=== PATIENT | male | born 1945 | race Caucasian/White ===

== ENCOUNTER 2023-06-28 12:13 | Emergency (ER) | payer OTHER, SELFPAY ==
[2023-06-28 12:15] VITALS: BP 133/86
[2023-06-28 13:46] LABS: % Basophils 0.5 % (0-2); % Eosinophils 1.4 % (0-6); % Immature Granulocytes 0.2 % (0-0.5); % Lymphocytes 9.7 % (20.5-51.1); % Monocytes 7.3 % (1.7-9.3); % Neutrophils 80.9 % (42.2-75.2); Absolute Eosinophils 0.1 10^3/uL (0-0.7); Absolute Lymphocytes 0.6 10^3/uL (1.2-3.4); Absolute Monocytes 0.5 10^3/uL (0.1-0.6); Absolute Neutrophils 5.2 10^3/uL (1.4-6.5); Hematocrit 31.4 % (39.0-52.0); Hemoglobin 10.5 g/dL (13.0-18.0); Mean Corp Hgb Conc. 33.4 g/dL (33.0-37.0); Mean Corpuscular Hgb 31.1 pg (27.0-31.0); Mean Corpuscular Volume 92.9 fL (80.0-94.0); Mean Platelet Volume 11.3 fL (7.4-10.4); Nucleated Red Blood Cells % 0 % (-); Platelet Count 222 10^3/uL (130-400); Red Blood Cell Count 3.38 10^6/uL (4.70-6.10); Red Cell Dist. Width 13.1 % (11.5-14.5); White Blood Cell Count 6.4 10^3/uL (4.8-10.8)
[2023-06-28 14:01] LABS: ALT (SGPT) 12 U/L (0-50); AST (SGOT) 19 U/L (17-59); Albumin 4.2 g/dl (3.5-5.0); Alkaline Phosphatase 58 U/L (38-126); Blood Urea Nitrogen 59 mg/dl (9-20); Calcium 7.8 mg/dl (8.4-10.2); Carbon Dioxide 19 mmol/L (22-30); Chloride 109 mmol/L (98-107); Glucose 99 mg/dl (70-99); Sodium 135 mmol/L (135-145); Total Bilirubin 0.7 mg/dl (0.2-1.3); Total Protein 6.4 g/dl (6.3-8.2); eGFR 10.79
--- NOTE | 2023-06-28 14:30 | ED.GENMED ---
History of Present Illness
General
Chief Complaint: Headache
Source: patient and spouse
Exam Limitations: none
Time Seen by Provider: 06/28/23 13:10
Nursing documentation reviewed up to this point in time: agreed with
Travel History
Have you had any contact with someone who has COVID-19?: No
Do you have any symptoms of coronavirus? Fever > 100 degrees, chills, cough, shortness of breath, sore throat, loss of taste or smell, muscle aches, or headache?: No
History of Present Illness
History of Present Illness:
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
last night. Denies blurred vision. Denies dizziness. Denies loss of sensation or weakness. Denies trauma. Denies neck pain. Denies chest pain. Denies coughing. Denies recent illness. Denies recent change in medications or diet. Per spouse,
patient appears to be more confused. Of note, patient with chronic renal insufficiency, and is scheduled to start dialysis in the near future. However, patient still does make urine and has had history of UTI.
Review of Systems
Review of Systems
Allergies reviewed?: Yes
All Other Systems: ROS reviewed and negative except as documented in HPI and ROS
Constitutional: Reports no symptoms
EENT: Reports no symptoms
Respiratory: Reports no symptoms
Cardiac: Reports no symptoms
ABD/GI: Reports no symptoms
: Reports no symptoms
Musculoskeletal: Reports no symptoms
Skin: Reports no symptoms
Neurological: Reports headache and other (mental status change)
Phy Exam
Physical Exam
Physical Exam:
Physical Exam
General: no apparent distress, not acutely ill. afebrile
Head: nc/at. eomi
Neck: supple. no meningeal signs.
Heart: s1/s2 regular rate and rhythm, no murmur. equal radial pulses.
Lungs: no acute respiratory distress. clear bilaterally
Abdomen: normal bowel sounds. not tender.
Neuro: alert and oriented. no focal neurological deficits. normal speech.
Skin: no rash
Psychiatric: well kept. interactive and cooperative
Extremities: no edema. no calf tenderness.
Course
Orders/Labs/Results
Orders:
Orders
06/28/23 13:27
Complete Blood Count/With Diff Urgent
06/28/23 13:28
Comprehensive Metabolic Panel Urgent
06/28/23 13:48
0.9% Sodium Chloride 250 ml [Nss] 250 ml IV BOLUS
06/28/23 14:33
Urinalysis Reflex To Culture Urgent
Date Specimen was Collected: 06/28/23
Time Specimen was Collected: 14:30
Urine Microscopic Reflex Cult Urgent
Urine Culture Urgent
HIEU Source: U
Specimen Description:
Date Specimen was Collected: 06/28/23
Time Specimen was Collected: 14:30
06/28/23 14:56
Add On - Microbiology Urgent
Tests Added?: urine culture
Abnormal Lab Results
06/28/23 06/28/23 06/28/23
13:27 13:28 14:33
RBC 3.38 L 10^6/uL
(4.70-6.10)
Hgb 10.5 L g/dL
(13.0-18.0)
Hct 31.4 L %
(39.0-52.0)
MCH 31.1 H pg
(27.0-31.0)
MPV 11.3 H fL
(7.4-10.4)
Absolute Lymphs (auto) 0.6 L 10^3/uL
(1.2-3.4)
Neutrophils % 80.9 H %
(42.2-75.2)
Lymphocytes % 9.7 L %
(20.5-51.1)
Chloride 109 H mmol/L
(98-107)
Carbon Dioxide 19 L mmol/L
(22-30)
BUN 59 H mg/dl
(9-20)
Creatinine 5.2 H* mg/dL
(0.7-1.3)
Calcium 7.8 L mg/dl
(8.4-10.2)
Ur Occult Blood Reflex Trace A
(Negative)
Urine Bacteria (Reflex) Few A
(Negative)
Urine Glucose Trace A
(Negative)
06/28/23 13:27
06/28/23 13:28
Vital Signs
Initial and Last Documented VS:
Initial Vital Signs
Temp Pulse Resp BP Pulse Ox
98.4 F 71 16 133/86 98
06/28/23 12:15 06/28/23 12:15 06/28/23 12:15 06/28/23 12:15 06/28/23 12:15
Last Documented Vital Signs
Temp Pulse Resp BP Pulse Ox
98.4 F 71 16 133/86 98
06/28/23 12:15 06/28/23 12:15 06/28/23 12:15 06/28/23 12:15 06/28/23 12:15
MDM/Problems Addressed
MDM/Problems Addressed:
Patient with an unremarkable workup in ED, including blood work and urinalysis. Patient without any focal neurological deficit and remains hemodynamically stable. Patient and spouse feel comfortable going home at this time. In light of patient's
underlying memory loss/dementia, mental status change may potentially be secondary to progressive symptoms versus other etiology. Patient will be referred to neurology for an outpatient consultation.
*Critical Care Note
Total Time (30-74mins, 75-104mins- exclusive of procedures): Not Applicable
ED Attending Note
-
Portions of this chart may have been created with voice recognition software.� Occasional wrong word or��sound alike� substitutions may have occurred due to the inherent limitations of voice recognition software.
Discharge Plan
Departure
Patient Disposition: Home (Routine Discharge)
Date of Disposition: 06/28/23
Time of Disposition: 14:58
Patient with high blood pressure during this ER visit?: Yes
Discharge Problem:
Altered mental status
Instructions: Altered Mental Status (DC)
Prescriptions:
No Action
citalopram 40 mg Tablet
40 mg PO DAILY
amlodipine 5 mg Tablet
5 mg PO QPM
metoprolol succinate 25 mg Tablet Extended Release 24 Hr
25 mg PO DAILY
magnesium 200 mg Tablet
400 mg PO DAILY
cholecalciferol (vitamin D3) [Vitamin D3] 50 mcg (2,000 unit) Tablet
50 mcg PO DAILY
sodium bicarbonate 650 mg Tablet
650 mg PO BID
calcitriol 0.25 mcg Capsule
0.5 mcg PO DAILY
tamsulosin [Flomax] 0.4 mg Capsule
0.4 mg PO DAILY
memantine 10 mg Tablet
10 mg PO DAILY
Referrals:
Keron Dixon MD [Active] -
Red Suarez MD [Family Provider] -
Activity Restrictions/Additional Instructions:
As discussed, please follow up with your primary care physician and/or neurologist for further evaluation and treatment.
Interventions
Interventions:
*Risk Screen - Suicide Last Done: 06/28/23 12:18
*General Assessment Last Done: 06/28/23 12:18
*Neglect/Abuse Screening Last Done: 06/28/23 12:18
*ED COVID-19 Vaccine History Last Done: 06/28/23 15:15
*Nursing Disposition Last Done: 06/28/23 16:06
ED- Neurological Assessment Last Done: 06/28/23 15:16
Discharge Date and Time
Discharge Date/Time: 06/28/23 15:30
[2023-06-28] MEDS: NSS 250 IV (14:31)
[2023-06-28 14:43] LABS: Urine Albumin Trace (Neg - Trace); Urine Bilirubin Negative (Negative); Urine Character Clear (Clear); Urine Color Yellow; Urine Glucose Trace (Negative); Urine Ketone Negative (Negative); Urine Leukocyte Negative (Negative); Urine Nitrite Negative (Negative); Urine Occult Blood Trace (Negative); Urine Specific Gravity 1.015 (<1.030); Urine Urobilinogen Negative (Neg - 1+)
[2023-06-28 14:52] LABS: Urine Bacteria Few (Negative); Urine Red Blood Cell 0-2 /HPF (0-2); Urine Squamous Cell 0-2 /LPF (Few); Urine White Cell 0-2 /HPF (0-5)
== END 2023-06-28 15:30 | disposition home or self-care (01) ==
LOC: EMR 12:13
PROVIDERS: EMERGENCY PHYSICIAN Emergency Medicine; FAMILY PHYSICIAN Family Medicine
DX: R41.82 Altered mental status, unspecified (principal)
CPT/HCPCS: 99282; 96360; 80053; 81003; 81015; 85025; 87077; 87086

== ENCOUNTER → 2023-07-08 11:18 | Outpatient (REF) | payer OTHER, SELFPAY ==
[2023-07-08 13:11] LABS: TSH Reflex To Free T4 2.75 uIU/ml (0.47-4.68)
[2023-07-08 13:31] LABS: Vitamin B12 171 pg/ml (239-931)
[2023-07-11 14:27] LABS: Syphilis/T. pallidum Ab Reflex Negative (Negative)
== END ==
LOC: REG 11:18
PROVIDERS: ATTENDING PHYSICIAN Psychiatry & Neurology Neurology; FAMILY PHYSICIAN Family Medicine
DX: G60.9 Hereditary and idiopathic neuropathy, unspecified (principal); F02.80 Dementia in other diseases classified elsewhere, unspecified severity, without behavioral disturbance, psychotic disturbance, mood disturbance, and anxiety
CPT/HCPCS: 36415; 82607; 84443; 86780

== ENCOUNTER → 2023-07-10 10:47 | Outpatient (REF) | payer OTHER, SELFPAY ==
--- NOTE | 2023-07-10 13:04 | EEG.RPT ---
Electroencephalogram Report
Recording
Date of EE07/10/23
Type of EEG: Routine
Length of EEG recordin minutes
Done with Video Recording: Yes
Patient Status: Outpatient
Recording Conditions: Awake and Drowsy
Hyperventilation Performed: No
Photic Stimulation Performed: Yes
Report
LESS THAN 1 HOUR EEG REPORT
LESS THAN 1 HOUR EEG INTERPRETATION:
Mildly abnormal EEG for age in wakefulness through sleep due to mild diffuse bihemispheric slowing
CLINICAL CORRELATION:
This study was suggestive of mild diffuse cortical dysfunction without focal abnormality. No seizures were recorded.
Clinical correlation is advised.
METHODS:
A 21 channel digitized electroencephalogram (EEG) was performed at the bedside. The 10/20 international system of electrode placement was used with ECG and lateral/vertical eye movements recorded. The [employer] system was utilized.
QUALITY OF STUDY:
Fair with muscle artifact
ELECTROENCEPHALOGRAPHER IMPRESSION(S):
Background
Amplitude: Low
Anterior-Posterior Organization: Fair, good at times
Maximum: Theta
Asymmetry: None
Sleep
Drowsiness present
Photic Stimulation
Failed to activate the record
ECG
Normal sinus rhythm
== END ==
LOC: RCS 10:47
PROVIDERS: ATTENDING PHYSICIAN Psychiatry & Neurology Neurology; FAMILY PHYSICIAN Family Medicine
DX: G30.9 Alzheimer's disease, unspecified (principal); F02.80 Dementia in other diseases classified elsewhere, unspecified severity, without behavioral disturbance, psychotic disturbance, mood disturbance, and anxiety
CPT/HCPCS: 95813

== ENCOUNTER → 2023-07-28 17:20 | Outpatient (REF) | payer OTHER, SELFPAY | LOC: MRI 3T 17:20 | PROVIDERS: ATTENDING PHYSICIAN Psychiatry & Neurology Neurology; FAMILY PHYSICIAN Family Medicine | DX: G30.9 Alzheimer's disease, unspecified (principal); F02.80 Dementia in other diseases classified elsewhere, unspecified severity, without behavioral disturbance, psychotic disturbance, mood disturbance, and anxiety | CPT/HCPCS: 70553; A9575 ==

== ENCOUNTER → 2023-08-28 11:33 | Outpatient (REF) | payer OTHER, SELFPAY ==
[2023-08-28 12:27] LABS: % Basophils 0.5 % (0-2); % Eosinophils 2.1 % (0-6); % Immature Granulocytes 0.3 % (0-0.5); % Lymphocytes 15.3 % (20.5-51.1); % Monocytes 7.7 % (1.7-9.3); % Neutrophils 74.1 % (42.2-75.2); Absolute Eosinophils 0.2 10^3/uL (0-0.7); Absolute Lymphocytes 1.2 10^3/uL (1.2-3.4); Absolute Monocytes 0.6 10^3/uL (0.1-0.6); Absolute Neutrophils 5.6 10^3/uL (1.4-6.5); Hematocrit 32.5 % (39.0-52.0); Hemoglobin 10.6 g/dL (13.0-18.0); Mean Corp Hgb Conc. 32.6 g/dL (33.0-37.0); Mean Corpuscular Hgb 30.5 pg (27.0-31.0); Mean Corpuscular Volume 93.4 fL (80.0-94.0); Mean Platelet Volume 10.7 fL (7.4-10.4); Nucleated Red Blood Cells % 0 % (-); Platelet Count 231 10^3/uL (130-400); Red Blood Cell Count 3.48 10^6/uL (4.70-6.10); Red Cell Dist. Width 13.7 % (11.5-14.5); White Blood Cell Count 7.5 10^3/uL (4.8-10.8)
[2023-08-28 13:05] LABS: Albumin 4.3 g/dl (3.5-5.0); Blood Urea Nitrogen 81 mg/dl (9-20); Calcium 8.6 mg/dl (8.4-10.2); Carbon Dioxide 25 mmol/L (22-30); Chloride 104 mmol/L (98-107); Glucose 98 mg/dl (70-99); Phosphorus 6.4 mg/dl (2.5-4.5); Potassium 5.1 mmol/L (3.5-5.1); Sodium 136 mmol/L (135-145); eGFR 9.27
[2023-08-28 13:45] LABS: Vitamin B12 354 pg/ml (239-931)
[2023-08-29 16:25] LABS: Intact PTH 366.2 pg/ml (13.6-85.8)
[2023-08-31 22:49] LABS: Methylmalonic Acid 0.36 umol/L (0.00-0.40)
== END ==
LOC: REG 11:33
PROVIDERS: ATTENDING PHYSICIAN Specialist; FAMILY PHYSICIAN Psychiatry & Neurology Neurology
DX: E53.8 Deficiency of other specified B group vitamins (principal); N18.5 Chronic kidney disease, stage 5
CPT/HCPCS: 36415; 80069; 82607; 83921; 83970; 85025

== ENCOUNTER → 2023-11-17 11:22 | Outpatient (REF) | payer OTHER, SELFPAY ==
[2023-11-17 13:20] LABS: Blood Urea Nitrogen 87 mg/dl (9-20); Calcium 8.8 mg/dl (8.4-10.2); Carbon Dioxide 20 mmol/L (22-30); Chloride 106 mmol/L (98-107); Glucose 96 mg/dl (70-99); Phosphorus 5.5 mg/dl (2.5-4.5); Potassium 4.7 mmol/L (3.5-5.1); Sodium 138 mmol/L (135-145); eGFR 9.27
[2023-11-17 13:42] LABS: Vitamin B12 > 1000 pg/ml (239-931)
[2023-11-20 06:52] LABS: Methylmalonic Acid 0.39 umol/L (0.00-0.40)
== END ==
LOC: REG 11:22
PROVIDERS: ATTENDING PHYSICIAN Specialist; FAMILY PHYSICIAN Family Medicine; REFERRING PHYSICIAN Psychiatry & Neurology Neurology
DX: E53.8 Deficiency of other specified B group vitamins (principal); N18.5 Chronic kidney disease, stage 5
CPT/HCPCS: 36415; 80069; 82607; 83921

== ENCOUNTER → 2023-12-16 09:42 | Outpatient (REF) | payer OTHER, SELFPAY | LOC: RAD 09:42 | PROVIDERS: ATTENDING PHYSICIAN Surgery Vascular Surgery; FAMILY PHYSICIAN Family Medicine; REFERRING PHYSICIAN Specialist | DX: I77.0 Arteriovenous fistula, acquired (principal) | CPT/HCPCS: 93990 ==

== ENCOUNTER 2023-12-24 11:16 | Day surgery (SDC) | payer OTHER, SELFPAY ==
[2023-12-24 11:31] VITALS: BP 202/72
[2023-12-24 12:21] LABS: INR 1.27
[2023-12-24 12:22] LABS: APTT 37.7 Sec (23.4-35.0)
[2023-12-24 12:30] LABS: Hematocrit 31.7 % (39.0-52.0); Hemoglobin 10.8 g/dL (13.0-18.0); Mean Corp Hgb Conc. 34.1 g/dL (33.0-37.0); Mean Corpuscular Hgb 32.7 pg (27.0-31.0); Mean Corpuscular Volume 96.1 fL (80.0-94.0); Mean Platelet Volume 10.6 fL (7.4-10.4); Platelet Count 240 10^3/uL (130-400); Red Cell Dist. Width 12.6 % (11.5-14.5); White Blood Cell Count 6.6 10^3/uL (4.8-10.8)
[2023-12-24 12:37] LABS: Blood Urea Nitrogen 83 mg/dl (9-20); Carbon Dioxide 22 mmol/L (22-30); Chloride 102 mmol/L (98-107); Estimated Creatinine Clearance 13 ml/min; Glucose 94 mg/dl (70-99); Potassium 5.1 mmol/L (3.5-5.1); Sodium 138 mmol/L (135-145); eGFR 9.66
--- NOTE | 2023-12-24 12:52 | W.SUR.PREOP ---
Pre-Operative Surgical Note
-
I have examined this patient prior to the performance of the scheduled procedure.
The patient's condition is unchanged from the time of the current History and
Physical and the patient is able to undergo the scheduled procedure.
--- NOTE | 2023-12-24 13:34 | W.SUR.POST ---
Surgical Immediate Post Op
Note
Pre Op Diagnosis: End-stage renal disease
Post Op Diagnosis: Same
Procedure Performed: Right upper extremity fistulogram, angioplasty/stent outflow vein stenosis
Primary Surgeon: Adam
Anesthesia: Local and sedation
Estimated Blood Loss: Less than 2 cc
Fluids: See anesthesia flowsheet
Drains/Shunts: None
Specimens/Cultures: None
Doppler/Duplex/Angio (Y/N): Y
Complications: None
Operative Findings: Palpable thrill
[2023-12-24 13:47] VITALS: BP 137/61; BP 202/72
[2023-12-24 14:00] VITALS: BP 153/64
[2023-12-24 14:15] VITALS: BP 149/66
[2023-12-24 14:30] VITALS: BP 173/63
--- NOTE | 2023-12-24 16:15 | OR.RPT ---
Operative Report
Operative Report
PROCEDURE DATE: 12/24/2023
Preoperative diagnosis:
1. End-stage renal disease approaching hemodialysis.
2. Failing right upper extremity arteriovenous fistula/graft.
Postoperative diagnosis: Same
Procedure:
1. Duplex assisted cannulation of right upper extremity arteriovenous fistula in a central facing direction.
2. Balloon angioplasty of outflow vein stenosis/stenoses with long 8 mm angioplasty balloon with overlapping inflations.
3. Placement of 8 mm Zilver PTX stents x 2 at the cephalic arch outflow stenosis, and the proximal upper arm outflow stenosis.
4. Supervision and interpretation.
Surgeon: Adam
Marking Machine Operator: None
Complications: None
Anesthesia: Local, sedation
Fluoroscopy:
7.3 min
16 mGy
4.24 Gy.cm2
Indications for procedure:
Chronic kidney disease with worsening function approaching hemodialysis. Concern for failing fistula on duplex assessment and physical exam. Risk/benefits/alternatives were all fully discussed with patient of fistulogram. Including the risk of
contrast-induced nephropathy or worsen nephropathy. He and his understood all wish to proceed.
Description of procedure:
Patient was identified, brought to the operating room. Placed on the table in the supine position. After the adequate administration of anesthesia, the patient was prepped and draped in the standard surgical fashion. A standard preoperative
timeout was undertaken and everybody was in agreement with the plan.
The right upper extremity arteriovenous fistula/graft (composite) was punctured and a central facing direction in the distal upper arm just proximal to the antecubital fossa using a micropuncture kit under direct duplex ultrasound guidance. A 5
Trinidadian sheath was then advanced over a 0.035 inch wire. Fistulogram demonstrated patent immediate outflow AV fistula and graft composite. However there is very slow filling noted. In the proximal upper arm, there was a severe weblike stenosis
followed by additional 2 areas of stenoses in close proximity. Beyond here there was another weblike stenosis near the start of the humerus, and then there is severe cephalic arch stenosis. My wire kept getting held up here. Therefore I used a
flopping of hydrophilic wire and a glide catheter with some difficulty was able to get through all these areas of stenoses, with the greatest difficulty in the more distal of the upper arm stenosis as well as the cephalic arch stenosis. Once I
gained central venous access I then exchanged for a DidLogq wire. I then balloon angioplastied the entire length of this outflow with the stenotic segments with an 8 mm balloon. Balloon was expanded to profile throughout. Overlapping inflations
were performed. Completion angiogram demonstrated good result but there was still some severe residual stenosis in the proximal upper arm as well as the cephalic arch. I therefore then used [employer] self-expanding drug-eluting stents 8 mm x 4
cm in the proximal upper arm stenosis and 8 mm x 6 cm in the cephalic arch stenosis. These were deployed in the standard fashion and then post angioplastied with 8 mm angioplasty balloons. Completion angiogram now demonstrated an excellent result
with no residual stenosis. In fact now there was more of a thrill rather than a pulsatility in the fistula. There is also brisk filling now into the outflow/central veins. Of note when I initially performed a fistulogram due to slow filling more
distally secondary to the stenoses, contrast refluxed across the arterial anastomosis that demonstrated widely patent arterial anastomotic site. Therefore at this point is very satisfied. Wires and catheters were withdrawn. A 4-0 Monocryl
pursestring stitch was placed around the sheath entry site and the sheath was withdrawn as the stitch was tied down. Manual pressure was also applied to the puncture site. Hemostasis was fully achieved.
The patient tolerated procedure well.
== END 2023-12-24 15:15 | disposition home or self-care (01) ==
LOC: CATH 11:16
PROVIDERS: ATTENDING PHYSICIAN Surgery Vascular Surgery; FAMILY PHYSICIAN Family Medicine
DX: T82.898A Other specified complication of vascular prosthetic devices, implants and grafts, initial encounter (principal); N18.6 End stage renal disease; Z99.2 Dependence on renal dialysis; T82.858A Stenosis of other vascular prosthetic devices, implants and grafts, initial encounter; Y83.2 Surgical operation with anastomosis, bypass or graft as the cause of abnormal reaction of the patient, or of later complication, without mention of misadventure at the time of the procedure; Z79.899 Other long term (current) drug therapy; I12.0 Hypertensive chronic kidney disease with stage 5 chronic kidney disease or end stage renal disease
CPT/HCPCS: 36903; 80048; 85027; 85610; 85730; 86850; 86900; 86901; 93005; C1725; C1769; C1874; C1894; Q9967

== ENCOUNTER → 2024-03-29 12:21 | Outpatient (REF) | payer MEDICARE, SELFPAY ==
[2024-03-29 13:56] LABS: Albumin 4.4 g/dl (3.5-5.0); Blood Urea Nitrogen 84 mg/dl (9-20); Calcium 8.7 mg/dl (8.4-10.2); Carbon Dioxide 27 mmol/L (22-30); Chloride 102 mmol/L (98-107); Glucose 86 mg/dl (70-99); Phosphorus 5.8 mg/dl (2.5-4.5); Potassium 5.1 mmol/L (3.5-5.1); Sodium 140 mmol/L (135-145); eGFR 8.51
== END ==
LOC: REG 12:21
PROVIDERS: ATTENDING PHYSICIAN Specialist; FAMILY PHYSICIAN Family Medicine
DX: N18.5 Chronic kidney disease, stage 5 (principal)
CPT/HCPCS: 36415; 80069

== ENCOUNTER → 2024-04-13 12:46 | Outpatient (REF) | payer MEDICARE, SELFPAY ==
[2024-04-13 13:13] LABS: Hematocrit 34.7 % (39.0-52.0); Hemoglobin 11.1 g/dL (13.0-18.0); Mean Corpuscular Hgb 31.8 pg (27.0-31.0); Mean Corpuscular Volume 99.4 fL (80.0-94.0); Mean Platelet Volume 10.2 fL (7.4-10.4); Platelet Count 223 10^3/uL (130-400); Red Blood Cell Count 3.49 10^6/uL (4.70-6.10); Red Cell Dist. Width 13.4 % (11.5-14.5)
[2024-04-13 13:31] LABS: Albumin 4.2 g/dl (3.5-5.0); Blood Urea Nitrogen 78 mg/dl (9-20); Calcium 8.8 mg/dl (8.4-10.2); Carbon Dioxide 24 mmol/L (22-30); Chloride 103 mmol/L (98-107); Glucose 101 mg/dl (70-99); Magnesium 2.4 mg/dl (1.6-2.3); Phosphorus 4.6 mg/dl (2.5-4.5); Potassium 4.9 mmol/L (3.5-5.1); Sodium 137 mmol/L (135-145); eGFR 9.03
[2024-04-14 09:07] LABS: Intact PTH 231.9 pg/ml (13.6-85.8)
== END ==
LOC: REG 12:46
PROVIDERS: ATTENDING PHYSICIAN Specialist; FAMILY PHYSICIAN Family Medicine
DX: N18.5 Chronic kidney disease, stage 5 (principal)
CPT/HCPCS: 36415; 80069; 83735; 83970; 85027

== ENCOUNTER 2024-07-02 06:23 | Day surgery (SDC) | payer MEDICARE, SELFPAY ==
[2024-06-24 11:27] LABS: INR 0.92; PT 12.9 Sec (11.4-14.6)
[2024-06-24 11:28] LABS: APTT 32.5 Sec (23.4-35.0)
[2024-06-24 14:13] VITALS: BMI 31.3
[2024-07-02] VITALS (16 sets, daily range): BP systolic 119–179; BP diastolic 53–91; BMI 31.3; BMI 31.9
--- NOTE | 2024-07-02 12:15 | W.SUR.PREOP ---
Pre-Operative Surgical Note
-
I have examined this patient prior to the performance of the scheduled procedure.
The patient's condition is unchanged from the time of the current History and
Physical and the patient is able to undergo the scheduled procedure.
To OR for TURP
Observation o/n
--- NOTE | 2024-07-02 15:51 | W.IMMPOSTOP ---
Surgical Immed Post Op Note
-
Primary Surgeon: Iris
Pre-op Diagnosis: BPH with JUAN (confirmed on UDS and cystoscopy)
Post-op Diagnosis: Same
Procedure Performed: TURP
Anesthesia Type: LMA
Specimen / Cultures: prostate chips/None
Estimated Blood Loss: Negligible
Drains: 22Fr 3-way catheter (25 cc in balloon)
Complications: None
Operative Findings: Resection of adenoma down to prostatic capsule, excellent hemostasis on final cystoscopy, widely patent prostatic urethral channel on final cystoscopy.
Spouse updated post-op.
[2024-07-02] MEDS: DETROL LA 4 MG PO (16:31)
--- NOTE | 2024-07-02 18:00 | PTCARENOTE ---
Pt received from the PACU via bed. Transport was w/o incident. Pt's at bedside and helped provide information for admission process, as Pt is a poor historian and has hx of dementia. Pt is Awake and alert, oriented X2, HR irreg, lungs are
clear, resp. easy. VSS, Pt is afebrile. Pt with CBI infusing without difficulty. Urine is currently a light punch color w/o clots noted. Pt and P't instructed on plan of care. Both Pt and verbalized understanding of instructions. Call mcmillan
is within reach.
[2024-07-02] MEDS: PHOSLO 667 MG PO (19:35)
[2024-07-02] MEDS: COREG 12.5 MG PO (19:35)
[2024-07-02] MEDS: NAMENDA 5 MG PO (19:36)
[2024-07-02] MEDS: SODIUM BICARBONATE 1300 MG PO (19:37)
[2024-07-02] MEDS: NORVASC 5 MG PO (19:37)
[2024-07-02] MEDS: TYLENOL 650 MG PO (19:46)
[2024-07-02] MEDS: LIDOCAINE URO-JET 2% 1 SYRINGE TOPICAL (21:32)
[2024-07-02] MEDS: MELATONIN 5 MG PO (21:32)
[2024-07-03] MEDS: MELATONIN 3 MG PO (00:03)
[2024-07-03] MEDS: ULTRAM 25 MG PO (01:27)
[2024-07-03] MEDS: TYLENOL 650 MG PO (03:04)
[2024-07-03] MEDS: LIDOCAINE 4% PATCH 1 PATCH TOPICAL (03:11)
[2024-07-03 03:22] VITALS: BP 152/72
[2024-07-03 06:47] LABS: % Basophils 0.1 % (0-2); % Immature Granulocytes 0.6 % (0-0.5); % Lymphocytes 4.9 % (20.5-51.1); % Monocytes 4.4 % (1.7-9.3); Absolute Immature Granulocytes 0.1 10^3/uL (0-0.05); Absolute Lymphocytes 0.7 10^3/uL (1.2-3.4); Absolute Monocytes 0.6 10^3/uL (0.1-0.6); Absolute Neutrophils 12.6 10^3/uL (1.4-6.5); Hematocrit 32.6 % (39.0-52.0); Mean Corp Hgb Conc. 33.7 g/dL (33.0-37.0); Mean Corpuscular Hgb 30.8 pg (27.0-31.0); Mean Corpuscular Volume 91.3 fL (80.0-94.0); Mean Platelet Volume 10.2 fL (7.4-10.4); Nucleated Red Blood Cells % 0 % (-); Platelet Count 246 10^3/uL (130-400); Red Blood Cell Count 3.57 10^6/uL (4.70-6.10); Red Cell Dist. Width 12.4 % (11.5-14.5)
[2024-07-03 07:10] VITALS: BP 156/79
[2024-07-03 07:18] LABS: Blood Urea Nitrogen 66 mg/dl (9-20); Calcium 9.3 mg/dl (8.4-10.2); Carbon Dioxide 21 mmol/L (22-30); Chloride 101 mmol/L (98-107); Estimated Creatinine Clearance 12 ml/min; Glucose 164 mg/dl (70-99); Potassium 4.8 mmol/L (3.5-5.1); Sodium 132 mmol/L (135-145); eGFR 8.85
[2024-07-03] MEDS: PHOSLO 667 MG PO (08:25)
[2024-07-03] MEDS: NAMENDA 5 MG PO (08:26)
[2024-07-03] MEDS: MAG-TAB SR 84 MG PO (08:26)
[2024-07-03] MEDS: COREG 12.5 MG PO (08:26)
[2024-07-03] MEDS: CELEXA 40 MG PO (08:26)
[2024-07-03] MEDS: ROCALTROL 0.5 MCG PO (08:26)
[2024-07-03] MEDS: VITAMIN D3 (cholecalciferol) 50 MCG PO (08:26)
[2024-07-03] MEDS: NORVASC 5 MG PO (08:27)
[2024-07-03] MEDS: SODIUM BICARBONATE 1300 MG PO (08:27)
[2024-07-03] MEDS: DEMADEX 20 MG PO (08:27)
--- NOTE | 2024-07-03 08:38 | W.PN.URO.CBU ---
Today's Communication / Plan
-
Voiding trial prior to discharge
eRx for cephalexin + pyridium sent to pharmacy
Assessment / Plan
-
BPH with JUAN
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
07/02: s/p TURP
Post-op milestones met.
Frederick catheter removed this AM for VT.
Clinically stable for discharge.
Diagnosis
-
Date of Service: July 03, 2024
-
Patient Diagnosis:
BPH with JUAN
Post Op Day:
07/02: s/p TURP
Subjective
-
Tolerating diet.
Frederick catheter out this AM.
Denies pain.
Objective
-
Vital Signs
Temp Pulse Resp BP Pulse Ox
97.7 F 69 16 156/79 94
07/03/24 07:10 07/03/24 07:10 07/03/24 07:10 07/03/24 07:10 07/03/24 07:10
Intake and Output
07/02/24 07/03/24 07/04/24
06:59 06:59 07:59
Intake Total 580 / 580
Output Total 400 / 400
Balance 180 / 180
Intake:
Oral fluids 480 / 480
IV fluids (Total) 100 / 100
Normosol 100 / 100
Output:
True Urine Output from CBI 400 / 400
Laboratory Results
07/03/24 06:31
07/03/24 06:31
Physical Exam
-
General - well developed, well nourished, no acute distress
Abdomen - soft, non-tender
Genitalia - normal
Neuro - AOx3, no motor deficits
Extremities - no clubbing, no cyanosis, no edema
Care Review
Data Reviewed
Discussed with: Family
--- NOTE | 2024-07-03 08:44 | W.DS.TRANS ---
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
-
Discharge Instructions:
Sleep Apnea Risk High
Discharge Diagnosis/Procedures BPH s/p TURP
Diet Regular
Activity No strenuous activity
Additional Activity No strenuous activity or heavy liftin x7 days
after surgery
Driving Restrictions As prior to admission
Bathing Restrictions None
Instructions:
Stand-Alone Forms:
Changes to Home Medications: No
Discharge Medications:
DC Medications w/original date entered in [facility]
amlodipine 5 mg tablet 5 mg PO BID 11/07/21
citalopram 40 mg tablet 40 mg PO DAILY 11/07/21
cholecalciferol (vitamin D3) 50 mcg (2,000 unit) tablet (Vitamin D3) 50 mcg PO DAILY 02/04/22
magnesium 200 mg tablet 400 mg PO DAILY 02/04/22
calcitriol 0.25 mcg capsule 0.5 mcg PO DAILY 01/29/23
sodium bicarbonate 650 mg tablet 1,300 mg PO BID 01/29/23
memantine 10 mg tablet 10 mg PO BID 06/28/23
calcium acetate 667 mg tablet 667 mg PO TID 12/19/23
carvedilol 12.5 mg tablet 12.5 mg PO BID 12/19/23
torsemide 20 mg tablet 20 mg PO DAILY 12/19/23
torsemide 5 mg tablet 5 mg PO DAILY 07/02/24
cephalexin 250 mg capsule 250 mg PO DAILY 5 days #5 caps 07/03/24
phenazopyridine 200 mg tablet (Pyridium) 200 mg PO DAILYPRN PRN dysuria 4 days #4 tabs 07/03/24
Home Medication Changes
Pending Results: No
Total time spent discharging patient (in min): 50
--- NOTE | 2024-07-03 11:17 | CM ---
Patient seen at bedside
Frederick removed-void trial
IA completed - obtained by Noman ([phone])
Lives with in 2 story home, 2 steps to enter, flight steps bedroom
PLOF: per independent, does not use a device
Denies DME
PCP: Red Suarez
[facility]
PLAN: Home, no needs
to transport
[2024-07-03 11:35] VITALS: BP 183/84
== END 2024-07-03 12:45 | disposition home or self-care (01) ==
LOC: SDS 06:23
PROVIDERS: ATTENDING PHYSICIAN Surgery
DX: N40.1 Benign prostatic hyperplasia with lower urinary tract symptoms (principal); N13.8 Other obstructive and reflux uropathy; R33.8 Other retention of urine; R39.14 Feeling of incomplete bladder emptying; N18.5 Chronic kidney disease, stage 5
CPT/HCPCS: 52601; 88305; 36415; 80048; 85025; 85610; 85730; 93005

== ENCOUNTER → 2024-07-07 12:07 | Outpatient (REF) | payer MEDICARE, SELFPAY ==
[2024-07-07 13:26] LABS: Albumin 4.3 g/dl (3.5-5.0); Blood Urea Nitrogen 79 mg/dl (9-20); Calcium 8.2 mg/dl (8.4-10.2); Carbon Dioxide 26 mmol/L (22-30); Chloride 98 mmol/L (98-107); Glucose 95 mg/dl (70-99); Phosphorus 5.3 mg/dl (2.5-4.5); Potassium 4.9 mmol/L (3.5-5.1); Sodium 136 mmol/L (135-145); eGFR 9.81
== END ==
LOC: REG 12:07
PROVIDERS: ATTENDING PHYSICIAN Specialist; FAMILY PHYSICIAN Family Medicine
DX: N18.5 Chronic kidney disease, stage 5 (principal)
CPT/HCPCS: 36415; 80069

== ENCOUNTER → 2024-10-04 11:49 | Outpatient (REF) | payer MEDICARE, SELFPAY ==
[2024-10-04 13:08] LABS: Albumin 4.3 g/dl (3.5-5.0); Blood Urea Nitrogen 80 mg/dl (9-20); Calcium 9.3 mg/dl (8.4-10.2); Carbon Dioxide 27 mmol/L (22-30); Chloride 104 mmol/L (98-107); Glucose 109 mg/dl (70-99); Phosphorus 5.8 mg/dl (2.5-4.5); Potassium 5.4 mmol/L (3.5-5.1); Sodium 139 mmol/L (135-145); eGFR 7.38
[2024-10-04 13:15] LABS: PSA, Total - Diagnostic 4.51 ng/ml (0.0-4.0)
== END ==
LOC: REG 11:49
PROVIDERS: ATTENDING PHYSICIAN Specialist; FAMILY PHYSICIAN Family Medicine; OTHER PHYSICIAN Surgery
DX: N18.5 Chronic kidney disease, stage 5 (principal); Z12.5 Encounter for screening for malignant neoplasm of prostate
CPT/HCPCS: 36415; 80069; 84153

== ENCOUNTER → 2024-11-02 14:35 | Outpatient (REF) | payer MEDICARE, SELFPAY ==
[2024-11-02 17:58] LABS: Urine Character Slightly Cloudy (Clear)
[2024-11-02 18:06] LABS: Urine Squamous Cell 0-2 /LPF (Few)
[2024-11-02 18:09] LABS: Urine White Cell >100 /HPF (0-5)
== END ==
LOC: CLAB 14:35
PROVIDERS: ATTENDING PHYSICIAN Surgery
DX: R33.9 Retention of urine, unspecified (principal)
CPT/HCPCS: 81003; 81015; 87077; 87086; 87186

== ENCOUNTER → 2024-11-30 11:29 | Outpatient (REF) | payer MEDICARE, SELFPAY | LOC: CLAB 11:29 | PROVIDERS: ATTENDING PHYSICIAN Surgery | DX: N39.0 Urinary tract infection, site not specified (principal) | CPT/HCPCS: 87086 ==

== ENCOUNTER 2024-12-02 08:51 | Emergency (ER) | payer MEDICARE, SELFPAY ==
[2024-12-02 08:57] VITALS: BP 171/76
--- NOTE | 2024-12-02 09:35 | ED.GENMED ---
History of Present Illness
General
Chief Complaint: Male Genito-Urinary Symptoms
Time Seen by Provider: 12/02/24 09:04
History of Present Illness
History of Present Illness:
79-year-old male presents to the emergency department with his spouse for evaluation of lower abdominal/genital area pain. He has a history of BPH status post TURP, has required Frederick catheter in the past however due to underlying dementia has
removed catheters frequently. is very apprehensive to the idea of an indwelling catheter if need be. Completed a course of ciprofloxacin yesterday. He denies any pain at present
Review of Systems
Review of Systems
Allergies reviewed?: Yes
All Other Systems: ROS reviewed and negative except as documented in HPI and ROS
Phy Exam
Physical Exam
Physical Exam:
GEN: Well appearing, NAD, WDWN
HEENT: Oral mucosa moist, no scleral icterus
Cardiac: Regular rate
Lung: No respiratory distress, no tachypnea
Abdomen: Soft, grossly nontender
: Unremarkable penis and scrotum, no swelling or tenderness
MSK: No gross deformity or injuries
Skin: Good color, no pallor or jaundice, no rashes
Neuro: AO x3, moves all extremities freely
Psych: Calm, cooperative
Course
Orders/Labs/Results
Orders:
Orders
12/02/24 09:09
Bladder Scan- Treatment ONCE
12/02/24 09:20
Urinalysis Reflex To Culture Urgent
Date Specimen was Collected: 12/02/24
Time Specimen was Collected: 09:19
Urine Microscopic Reflex Cult Urgent
Urine Culture Urgent
HIEU Source: U
Specimen Description:
Date Specimen was Collected: 12/02/24
Time Specimen was Collected: 09:19
12/02/24 10:17
Case Management Consult ONCE
Case Management Consult: VN/Home Care
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
Abnormal Lab Results
12/02/24
09:20
Ur Occult Blood Reflex 1+ A
(Negative)
Leukocyte Esterase Rfl 1+ A
(Negative)
Urine Glucose 1+ A
(Negative)
Urine Albumin (Reflex) 2+ A
(Neg - Trace)
Vital Signs
Initial and Last Documented VS:
Initial Vital Signs
Temp Pulse Resp BP Pulse Ox
97.8 F 54 16 171/76 98
12/02/24 08:57 12/02/24 08:57 12/02/24 08:57 12/02/24 08:57 12/02/24 08:57
Last Documented Vital Signs
Temp Pulse Resp BP Pulse Ox
97.8 F 60 16 171/76 97
12/02/24 08:57 12/02/24 11:29 12/02/24 08:57 12/02/24 08:57 12/02/24 11:06
MDM/Problems Addressed
MDM/Problems Addressed:
Patient's symptoms most likely due to urinary retention. Urinalysis is bland. Due to dementia and refusal to tolerate a Frederick catheter the decision was made to educate the spouse in regards to intermittent straight cath. Seen by case management
and will be given resource for visiting nurses, straight cath supplies provided by ED and prescription sent for further medical supplies
*Pulse Oximetry
SaO2: 98
Oxygen Mode of Delivery: Room air
Patient hypoxic: no
*Critical Care Note
Total Time (30-74mins, 75-104mins- exclusive of procedures): Not Applicable
ED Attending Note
-
Portions of this chart may have been created with voice recognition software.� Occasional wrong word or��sound alike� substitutions may have occurred due to the inherent limitations of voice recognition software.
Discharge Plan
Departure
Patient Disposition: Home (Routine Discharge)
Date of Disposition: 12/02/24
Time of Disposition: 11:35
Patient with high blood pressure during this ER visit?: No
Discharge Problem:
Urinary retention
Instructions: Urinary Retention (DC)
Prescriptions:
New
(DME) catheter 16 Fr misc
See Rx Instructions .ROUTE Qty: 30 0RF
Rx Instructions:
As directed, perform once to twice daily as needed for urinary retention
No Action
citalopram 40 mg Tablet
40 mg PO DAILY
amlodipine 5 mg Tablet
5 mg PO BID
magnesium 200 mg Tablet
400 mg PO DAILY
cholecalciferol (vitamin D3) [Vitamin D3] 50 mcg (2,000 unit) Tablet
50 mcg PO DAILY
sodium bicarbonate 650 mg Tablet
1,300 mg PO BID
calcitriol 0.25 mcg Capsule
0.5 mcg PO DAILY
memantine 10 mg Tablet
10 mg PO BID
carvedilol 12.5 mg Tablet
12.5 mg PO BID
torsemide 20 mg Tablet
20 mg PO DAILY
calcium acetate 667 mg Tablet
667 mg PO TID
torsemide 5 mg Tablet
5 mg PO DAILY
cephalexin 250 mg capsule
250 mg PO DAILY 5 Days Qty: 5 0RF
phenazopyridine [Pyridium] 200 mg tablet
200 mg PO DAILYPRN PRN (Reason: dysuria) 4 Days Qty: 4 0RF
Referrals:
Jean Claude Rogel MD [Family Provider, General]
Activity Restrictions/Additional Instructions:
Please perform straight catheterization once daily at minimum, preferably before bed or first thing in the morning
If Brendan has complaints of pain or discomfort, straight cath can be performed up to every 8 hours
Follow up with your urologist for further orders of supplies
Interventions
Interventions:
*Risk Screen - Suicide Last Done: 12/02/24 08:57
*General Assessment Last Done: 12/02/24 10:00
*Neglect/Abuse Screening Last Done: 12/02/24 08:57
*ED- Fall Risk Assessment Last Done: 12/02/24 10:00
*ED COVID-19 Vaccine History Last Done: 12/02/24 11:36
*Nursing Disposition Last Done: 12/02/24 12:11
ED-Male Genitourinary Assessment Last Done: 12/02/24 10:00
Discharge Date and Time
Discharge Date/Time: 12/02/24 12:12
Print Language: SERBIAN
[2024-12-02 09:50] LABS: Urine Character Clear (Clear)
[2024-12-02 10:28] LABS: Urine Squamous Cell 0-2 /LPF (Few); Urine Urothelial Cell 0-2 /LPF (FEW)
[2024-12-02 10:29] LABS: Urine Red Blood Cell 0-2 /HPF (0-2)
--- NOTE | 2024-12-02 11:32 | CM ---
Patient seen at bedside with
IA obtained by
Explained CM role
CM consult completed for VN
prefers [facility] as they had in the past. [facility] liaison notified. Referral placed in [facility]
Patient lives with in 2 story home, 2 [address], flight of steps to bedroom/bathroom, powder room on 1st floor
PLOF: independent, no assistive device used
Denies DME
Denies insecurities
Resources given to for private cg
PCP: Jean Claude Lindo
Pharmacy: [address]
PLAN: home with [facility]
to transport
--- NOTE | 2024-12-02 11:54 | VNURNOTE ---
Home Health Liaison met with patient and spouse at bedside to discuss [facility] nurse/therapy, visits, schedule and homebound status. Both are agreeable and understand that visits at home will be 2-3 x per week to assess and teach medical management.
This author spoke w/primary RN and requested extra st. cath kits be sent home w/pt. Spouse and pt aware that [facility] will contact them for start of care in 1-2 days after discharge from .
[facility] referral completed and accepted in [facility].
== END 2024-12-02 12:12 | disposition home or self-care (01) ==
LOC: EMR 08:51
PROVIDERS: Physician Assistant; EMERGENCY PHYSICIAN Emergency Medicine; FAMILY PHYSICIAN Internal Medicine
DX: R10.30 Lower abdominal pain, unspecified (principal); N40.1 Benign prostatic hyperplasia with lower urinary tract symptoms; R33.8 Other retention of urine; F03.90 Unspecified dementia, unspecified severity, without behavioral disturbance, psychotic disturbance, mood disturbance, and anxiety
CPT/HCPCS: 99285; 51798; 51701; 81003; 81015; 87086

== ENCOUNTER → 2024-12-07 13:58 | Outpatient (REF) | payer MEDICARE, SELFPAY ==
[2024-12-07 16:18] LABS: Albumin 4.0 g/dl (3.5-5.0); Blood Urea Nitrogen 80 mg/dl (9-20); Calcium 9.2 mg/dl (8.4-10.2); Carbon Dioxide 21 mmol/L (22-30); Chloride 105 mmol/L (98-107); Glucose 88 mg/dl (70-99); Potassium 4.6 mmol/L (3.5-5.1); Sodium 137 mmol/L (135-145); eGFR 8.85
== END ==
LOC: REG 13:58
PROVIDERS: ATTENDING PHYSICIAN Specialist; FAMILY PHYSICIAN Internal Medicine
DX: N18.5 Chronic kidney disease, stage 5 (principal)
CPT/HCPCS: 36415; 80069

== ENCOUNTER → 2024-12-20 10:16 | Outpatient (REF) | payer MEDICARE, SELFPAY | LOC: HWRAD 10:16 | PROVIDERS: ATTENDING PHYSICIAN Student in an Organized Health Care Education/Training Program; FAMILY PHYSICIAN Internal Medicine; REFERRING PHYSICIAN Surgery Vascular Surgery | DX: I35.0 Nonrheumatic aortic (valve) stenosis (principal); I77.0 Arteriovenous fistula, acquired | CPT/HCPCS: 71250; 93990 ==

== ENCOUNTER → 2025-02-07 12:11 | Outpatient (REF) | payer MEDICARE, SELFPAY ==
[2025-02-07 14:11] LABS: Hematocrit 27.4 % (39.0-52.0); Hemoglobin 9.0 g/dL (13.0-18.0); Mean Corp Hgb Conc. 32.8 g/dL (33.0-37.0); Mean Corpuscular Volume 93.5 fL (80.0-94.0); Platelet Count 249 10^3/uL (130-400); Red Cell Dist. Width 13.7 % (11.5-14.5)
[2025-02-07 14:46] LABS: Albumin 4.3 g/dl (3.5-5.0); Blood Urea Nitrogen 74 mg/dl (9-20); Calcium 8.8 mg/dl (8.4-10.2); Carbon Dioxide 24 mmol/L (22-30); Chloride 104 mmol/L (98-107); Glucose 89 mg/dl (70-99); Potassium 5.2 mmol/L (3.5-5.1); Sodium 137 mmol/L (135-145); eGFR 7.59
== END ==
LOC: REG 12:11
PROVIDERS: ATTENDING PHYSICIAN Specialist; FAMILY PHYSICIAN Internal Medicine
DX: N18.5 Chronic kidney disease, stage 5 (principal)
CPT/HCPCS: 36415; 80069; 83970; 85027

== ENCOUNTER 2025-04-11 17:38 | Inpatient (IN) | payer MEDICARE, SELFPAY ==
[2025-04-11] VITALS (14 sets, daily range): BP systolic 135–182; BP diastolic 60–125; BMI 30.6; BMI 33.0
[2025-04-11 12:48] LABS: Glucose - Point of Care 75 mg/dl (70-99)
[2025-04-11 13:08] LABS: Hematocrit 24.7 % (39.0-52.0); Hemoglobin 7.9 g/dL (13.0-18.0); Mean Corp Hgb Conc. 32.0 g/dL (33.0-37.0); Mean Corpuscular Volume 93.9 fL (80.0-94.0); Nucleated Red Blood Cells % 0 % (-); Platelet Count 233 10^3/uL (130-400); Red Cell Dist. Width 13.9 % (11.5-14.5)
[2025-04-11 13:33] LABS: ALT (SGPT) 15 U/L (0-50); AST (SGOT) 16 U/L (17-59); Albumin 4.2 g/dl (3.5-5.0); Alkaline Phosphatase 36 U/L (38-126); Blood Urea Nitrogen 82 mg/dl (9-20); Calcium 8.4 mg/dl (8.4-10.2); Carbon Dioxide 21 mmol/L (22-30); Chloride 103 mmol/L (98-107); Glucose 88 mg/dl (70-99); Potassium 4.6 mmol/L (3.5-5.1); Sodium 136 mmol/L (135-145); Total Protein 6.6 g/dl (6.3-8.2); eGFR 6.35
[2025-04-11 14:24] LABS: Urine Character Clear (Clear)
[2025-04-11 14:45] LABS: Urine Squamous Cell 0-2 /LPF (Few); Urine White Cell 0-2 /HPF (0-5)
[2025-04-11 14:47] LABS: Urine Red Blood Cell 0-2 /HPF (0-2)
--- NOTE | 2025-04-11 15:31 | ED.GENMED ---
History of Present Illness
<Jaquan Choi DO, Resident - Last Filed: 04/11/25 17:09>
General
Chief Complaint: Change in Mental Status
Source: spouse
Exam Limitations: dementia
Time Seen by Provider: 04/11/25 13:43
Nursing documentation reviewed up to this point in time: agreed with
History of Present Illness
History of Present Illness:
Brendan Kemp is a 80M w/ past medical history of chronic kidney disease stage V, BPH with LUTS, hyperparathyroidism, dementia, hypertension, hyperlipidemia. Subjective history is limited secondary to dementia. History is provided by the patient's
. Per patient's , patient has been experiencing wheezing for the past 2 weeks. Symptoms progressively worsened over that period, and eventually started to look like labored breathing 2 days ago. This morning, the witnessed the patient
appearing somnolent and on the way to the doctor's office was slumped over in the car. Upon admission to the patient's primary care provider, patient was advised to go to the emergency department. ROS is limited secondary to dementia, however
patient is able to express that he does not have any pain and nothing else is bothering him except feeling cold on occasion. He is unable to tell us how often he urinates, as well as last time he urinated although he thinks that he it was either
this morning or last night.
Past History
<Jaquan Choi DO, Resident - Last Filed: 04/11/25 17:09>
Past History
ED Past Medical History: HTN, Hypercholesterolemia and Other (dementia (nonspecified), BPH w/ LUTS, CKD stage 5 not on dialysis, hyperparathyroidism)
Social History
Personal:
Living: with family
Review of Systems
<Jaquan Choi DO, Resident - Last Filed: 04/11/25 17:09>
Review of Systems
Allergies reviewed?: Yes
Unable to obtain full review of systems at this time due to: dementia
Phy Exam
<Jaquan Choi DO, Resident - Last Filed: 04/11/25 17:09>
Physical Exam
Physical Exam:
General: Well appearing, but appears to have abdominal rounding with breathing on presentation; this breathing pattern ceased after straight cath
HEENT: oral mucosa moist, no scleral icterus
CV: RRR, no m/r/g
Lungs: diffuse wheeze, abdominal rounding as above; ceased after straight cath
Abdomen: no obvious abdominal distension; soft, nontender to palpation.
: patient straight cathed during exam; drained 600cc of straw colored urine
MSK: no clubbing, no cyanosis, no edema
Skin: Good color, no pallor or jaundice
Neuro: AOX3, moving all 4s
Psych: calm, cooperative
Scores
<Jaquan Choi DO, Resident - Last Filed: 04/11/25 17:09>
Heart Failure Risk
Heart Failure Risk Score: Not Applicable
Heart Score for Chest Pain Patients
STEMI patient?: Not applicable
Withdrawal Assessment of Alcohol
Withdrawal Assessment Completed?: Not applicable
Course
<Jaquan Choi DO, Resident - Last Filed: 04/11/25 17:09>
Orders/Labs/Results
Orders:
Orders
04/11/25 12:32
Electrocardiogram (*1) Urgent
Reason for Study: Other
Other Reason for Exam: Possible Sepsis
Cardiac Monitoring- Treatment ONCE
EKG- Treatment ONCE
IV Insert/Care/Rem.- Treatment PRN
Straight cath- Treatment ONCE
O2 Therapy [RESP] Urgent
Titrate/Wean O2 to maintain O2 sat greater than (%): 93
Special Instructions: TO MAINTAIN CONTINUOUS O2 SATS > OR = 93%
Pulse Ox/cont/shift [RESP] Urgent
Quantity: 1
Special Instructions: CONTINUOUS
04/11/25 12:53
Complete Blood Count/With Diff Urgent
Comprehensive Metabolic Panel Urgent
Iron Urgent
Comment: ADD ON
Total Iron Binding Urgent
Comment: ADD ON
04/11/25 14:15
Urinalysis Reflex To Culture Urgent
Date Specimen was Collected: 04/11/25
Time Specimen was Collected: 12:32
Urine Microscopic Reflex Cult Urgent
04/11/25 15:53
Ferritin Urgent
Comment: ADD ON
04/11/25 16:05
CR Chest - 2 Views Urgent
Comment:
Reason For Exam: Wheezing
04/11/25 16:15
BNP [NT-proBNP] Stat
Troponin I Stat
04/11/25 17:09
Admit/Transfer Patient As Directed
Co-Sign Provider:
Level of Care: Inpatient admission
Assign to:: Telemetry
Physician / Group: Dr Acosta
Diagnosis: MARCIA on CKD
Reason for Telemetry: Arrhythmia
Date to Stop Telemetry: 04/14/25
Time to Stop Telemetry: 11:00
Reason for Hospitalization: MARCIA on CKD
Expected length of stay greater than two midnights?: Yes
ELOS- Estimated Length of Stay in days: 2
I certify the patient meets the requirements for IP care: Yes
PRN Pain Medication Management As Directed
May give lesser potent ordered pain med per pt: Yes
preference::
Protocol:: Medication orders for pain may be administered in a
manner that supports deferring to patient preference
when the pt is:
- Requesting an ordered lesser potent pain medication.
Least to most potent pain medications are defined
as: acetaminophen < NSAID < tramadol < opioids
(morphine, oxycodone, hydromorphone).
- Requesting a lesser dose of the same medication IF
ORDERED.
- Requesting a less intrusive route of administration
if both routes are prescribed by the provider (PO <
IV).
04/11/25 17:12
Code Status As Directed
Resuscitation Status: Full Code
04/14/25 11:00
DC Protocol for Telemetry ONCE
Abnormal Lab Results
04/11/25 04/11/25 04/11/25
12:53 14:15 16:15
RBC 2.63 L 10^6/uL
(4.70-6.10)
Hgb 7.9 L g/dL
(13.0-18.0)
Hct 24.7 L %
(39.0-52.0)
MCHC 32.0 L g/dL
(33.0-37.0)
MPV 10.6 H fL
(7.4-10.4)
Absolute Lymphs (auto) 0.7 L 10^3/uL
(1.2-3.4)
Absolute Monos (auto) 0.8 H 10^3/uL
(0.1-0.6)
Lymphocytes % 10.1 L %
(20.5-51.1)
Monocytes % 10.3 H %
(1.7-9.3)
Carbon Dioxide 21 L mmol/L
(22-30)
BUN 82 H mg/dl
(9-20)
Creatinine 8.0 H* mg/dL
(0.7-1.3)
Iron 47 L ug/dl
(49-181)
% Saturation 11 L %
(20-50)
AST 16 L U/L
(17-59)
Alkaline Phosphatase 36 L U/L
(38-126)
Troponin I 0.097 H* ng/ml
Ur Occult Blood Reflex 2+ A
(Negative)
Urine Glucose 1+ A
(Negative)
Urine Albumin (Reflex) 2+ A
(Neg - Trace)
04/11/25 12:53
04/11/25 12:53
Vital Signs
Initial and Last Documented VS:
Initial Vital Signs
Temp Pulse Resp BP Pulse Ox
98 F 55 13 167/70 92
04/11/25 12:29 04/11/25 12:29 04/11/25 12:29 04/11/25 12:29 04/11/25 12:29
Last Documented Vital Signs
Temp Pulse Resp BP Pulse Ox
98 F 76 18 144/79 95
04/11/25 12:29 04/11/25 17:50 04/11/25 17:50 04/11/25 18:34 04/11/25 17:50
<Jose Perez, DO - Last Filed: 04/11/25 18:39>
Orders/Labs/Results
Orders:
Orders
04/11/25 12:32
Electrocardiogram (*1) Urgent
Reason for Study: Other
Other Reason for Exam: Possible Sepsis
Cardiac Monitoring- Treatment ONCE
EKG- Treatment ONCE
IV Insert/Care/Rem.- Treatment PRN
Straight cath- Treatment ONCE
O2 Therapy [RESP] Urgent
Titrate/Wean O2 to maintain O2 sat greater than (%): 93
Special Instructions: TO MAINTAIN CONTINUOUS O2 SATS > OR = 93%
Pulse Ox/cont/shift [RESP] Urgent
Quantity: 1
Special Instructions: CONTINUOUS
04/11/25 12:53
Complete Blood Count/With Diff Urgent
Comprehensive Metabolic Panel Urgent
Iron Urgent
Comment: ADD ON
Total Iron Binding Urgent
Comment: ADD ON
04/11/25 14:15
Urinalysis Reflex To Culture Urgent
Date Specimen was Collected: 04/11/25
Time Specimen was Collected: 12:32
Urine Microscopic Reflex Cult Urgent
04/11/25 15:53
Ferritin Urgent
Comment: ADD ON
04/11/25 16:05
CR Chest - 2 Views Urgent
Comment:
Reason For Exam: Wheezing
04/11/25 16:15
BNP [NT-proBNP] Stat
Troponin I Stat
04/11/25 17:09
Admit/Transfer Patient As Directed
Co-Sign Provider:
Level of Care: Inpatient admission
Assign to:: Telemetry
Physician / Group: Dr Acosta
Diagnosis: MARCIA on CKD
Reason for Telemetry: Arrhythmia
Date to Stop Telemetry: 04/14/25
Time to Stop Telemetry: 11:00
Reason for Hospitalization: MARCIA on CKD
Expected length of stay greater than two midnights?: Yes
ELOS- Estimated Length of Stay in days: 2
I certify the patient meets the requirements for IP care: Yes
PRN Pain Medication Management As Directed
May give lesser potent ordered pain med per pt: Yes
preference::
Protocol:: Medication orders for pain may be administered in a
manner that supports deferring to patient preference
when the pt is:
- Requesting an ordered lesser potent pain medication.
Least to most potent pain medications are defined
as: acetaminophen < NSAID < tramadol < opioids
(morphine, oxycodone, hydromorphone).
- Requesting a lesser dose of the same medication IF
ORDERED.
- Requesting a less intrusive route of administration
if both routes are prescribed by the provider (PO <
IV).
04/11/25 17:12
Code Status As Directed
Resuscitation Status: Full Code
04/14/25 11:00
DC Protocol for Telemetry ONCE
Abnormal Lab Results
04/11/25 04/11/25 04/11/25
12:53 14:15 16:15
RBC 2.63 L 10^6/uL
(4.70-6.10)
Hgb 7.9 L g/dL
(13.0-18.0)
Hct 24.7 L %
(39.0-52.0)
MCHC 32.0 L g/dL
(33.0-37.0)
MPV 10.6 H fL
(7.4-10.4)
Absolute Lymphs (auto) 0.7 L 10^3/uL
(1.2-3.4)
Absolute Monos (auto) 0.8 H 10^3/uL
(0.1-0.6)
Lymphocytes % 10.1 L %
(20.5-51.1)
Monocytes % 10.3 H %
(1.7-9.3)
Carbon Dioxide 21 L mmol/L
(22-30)
BUN 82 H mg/dl
(9-20)
Creatinine 8.0 H* mg/dL
(0.7-1.3)
Iron 47 L ug/dl
(49-181)
% Saturation 11 L %
(20-50)
AST 16 L U/L
(17-59)
Alkaline Phosphatase 36 L U/L
(38-126)
Troponin I 0.097 H* ng/ml
Ur Occult Blood Reflex 2+ A
(Negative)
Urine Glucose 1+ A
(Negative)
Urine Albumin (Reflex) 2+ A
(Neg - Trace)
04/11/25 12:53
04/11/25 12:53
Vital Signs
Initial and Last Documented VS:
Initial Vital Signs
Temp Pulse Resp BP Pulse Ox
98 F 55 13 167/70 92
04/11/25 12:29 04/11/25 12:29 04/11/25 12:29 04/11/25 12:04/11/25 12:29
Last Documented Vital Signs
Temp Pulse Resp BP Pulse Ox
98 F 76 18 144/79 95
04/11/25 12:29 04/11/25 17:50 04/11/25 17:50 04/11/25 18:34 04/11/25 17:50
<Jaquan Choi DO, Resident - Last Filed: 04/11/25 17:09>
MDM/Problems Addressed
Differential Diagnosis Includes:
Urinary retention, acute kidney failure (either secondary to postrenal or in the setting of worsening CKD), acute on chronic congestive heart failure, pneumonia
MDM/Problems Addressed:
80M PMHx CKD5, BPH w/ LUTS, dementia, HTN, HLD whose endorses 2 weeks of wheezing progressing to 2 days of increased work of breathing. Patient was somnolent this AM and was taken to his primary care who advised to come to the ED. On arrival
patient had a creatinine of 8 and was straight cathed for a 600cc yield of straw colored urine. Patient appears more alert after straight cath, but continues to have wheezing. CXR ordered. Will admit to hospitalist given liekly acute on chornic
kidney failure, possible heart failure exacerbation, and urinary retention.
<Jaquan Choi DO, Resident - Last Filed: 04/11/25 17:09>
*Pulse Oximetry
SaO2: 92
Oxygen Mode of Delivery: Room air
Patient hypoxic: no
*Critical Care Note
Total Time (30-74mins, 75-104mins- exclusive of procedures): Not Applicable
ED Attending Note
<Jaquan Choi DO, Resident - Last Filed: 04/11/25 17:09>
-
Portions of this chart may have been created with voice recognition software.� Occasional wrong word or��sound alike� substitutions may have occurred due to the inherent limitations of voice recognition software.
<Jose Perez, DO - Last Filed: 04/11/25 18:39>
ED Attending Note
Patient seen and examined by attending physician: Yes
I performed a history and physical exam of patient and discussed management with resident, I reviewed resident's note and agree with documented findings and plan of care.: Yes
ED Attending Note:
I have reviewed and agree with history treatment plan by Jaquan Choi D.O. my exam revealed 80-year-old male with cough, Rales, afebrile. Suspect fluid overload acute on chronic renal failure. Admit patient for further treatment and possibly
start dialysis. Dialysis indicated at this time, but will continue IV Lasix.
Discharge Plan
Departure
Patient Disposition: Admit
Date of Disposition: 04/11/25
Time of Disposition: 16:51
Admit to: Telemetry
Admit to doctor: Dr. Ortega
Presentation/result/management discussed w/ accepting MD/DO: Hospitalist
Condition: Fair
Discharge Problem:
Acute kidney injury superimposed on stage 5 chronic kidney disease, not on chronic dialysis, BPH NOS w ur obs/LUTS, Fluid overload
Interventions
Interventions:
*General Assessment Last Done: 04/11/25 12:29
*Neglect/Abuse Screening Last Done: 04/11/25 12:29
*ED COVID-19 Vaccine History Last Done: 04/11/25 14:22
*ED Influenza Vaccine History Last Done: 04/11/25 14:22
[facility] Risk Assessment Tool Last Done: 04/11/25 14:20
*Risk Screen - Suicide (C-SSRS) Last Done: 04/11/25 12:29
ED- Pulmonary Assessment Last Done: 04/11/25 17:50
ED- Neurological Assessment Last Done: 04/11/25 14:20
ED- Cardiac Assessment Last Done: 04/11/25 14:20
[2025-04-11 16:58] LABS: Troponin I 0.097 ng/ml
--- NOTE | 2025-04-11 17:15 | HPS.HSE ---
Family Physician
-
Family Physician: Jean Claude Rogel MD
Chief Complaint
-
Altered mental status
History of Present Illness
Patient is 80 years old male with history of hypertension, hyperlipidemia, CKD, depression anxiety, dementia, came into the hospital with altered mental status. Most of information gathered from and medical records and ER staff since patient
unable to provide accurate information due to his dementia. Patient has been more confused than his baseline over the last several days and he is also being more short of breath as well. He was noted to have active wheezing in the ED. No fevers
or chills reported. In the ED he was noted to have urinary retention and he had a straight catheter 600 cc of yellow urine. His creatinine was noted to be 8 from baseline of 6.9 back in January. He is hemoglobin 7.9 from baseline of 9 in January
as well. He had a chest x-ray with bilateral opacities and he has some conversational dyspnea but off oxygen. He was referred to hospitalist service for further evaluation.
Medical History
Past Medical History
Past Medical History: Reports Other (Hypertension, hyperlipidemia, CKD, depression anxiety, dementia)
Past Surgical History: Reports Other (TURBT in the past)
Social History
Unable to obtain full social history at this time due to: Dementia
Family History
Family History: Not pertinent
Allergies / Home Medications
Allergies reflects when Allergies were last updated in [facility].
Home Medications with original date entered in [facility]
Allergy/Medication List:
Allergies
Allergy/AdvReac Type Severity Reaction Status Date / Time
No Known Allergies Allergy Verified 07/02/24 12:27
Home Medications
amlodipine 5 mg tablet 5 mg PO BID 11/07/21
citalopram 40 mg tablet 40 mg PO DAILY 11/07/21
cholecalciferol (vitamin D3) 50 mcg (2,000 unit) tablet (Vitamin D3) 50 mcg PO DAILY 02/04/22
calcitriol 0.25 mcg capsule 0.5 mcg PO DAILY 01/29/23
sodium bicarbonate 650 mg tablet 1,300 mg PO BID 01/29/23
memantine 10 mg tablet 10 mg PO DAILY 06/28/23
carvedilol 12.5 mg tablet 12.5 mg PO BID 12/19/23
torsemide 20 mg tablet 30 mg PO QHS 12/19/23
acetaminophen 325 mg tablet (Tylenol) 650 mg PO Q6HPRN PRN mild pain 04/11/25
aspirin 81 mg tablet 81 mg PO DAILY 04/11/25
atorvastatin 40 mg tablet 40 mg PO HS 04/11/25
quetiapine 50 mg tablet (Seroquel) 50 mg PO HS 04/11/25
sevelamer HCl 800 mg tablet 1,600 mg PO TID 04/11/25
Review of Systems
-
Unable to obtain full review of systems at this time due to: Dementia
Physical Exam
Vital Signs
Vital Signs
Temp Pulse Resp BP Pulse Ox
98 F 66 16 162/67 95
04/11/25 12:29 04/11/25 16:00 04/11/25 16:00 04/11/25 15:00 04/11/25 16:00
Physical exam:
General: Acutely ill
HEENT: Normocephalic, Atraumatic and Moist Mucous Membranes
Respiratory: Bilateral crackles at bases; Negative Wheezes or Rhonchi
Cardiac: Regular Rhythm and S1/S2
GI: Soft, Nontender and Nondistended
Musculoskeletal: No Clubbing, No Cyanosis and No Edema
Neuro: Awake, Alert and Disoriented, no gross neurological deficits but generalized weakness
Psych: Calm
Physical Exam
General: Other
Laboratory Results
-
04/11/25 12:53
04/11/25 12:53
Laboratory Results
Total Bilirubin 1.2 mg/dl (0.2-1.3) 04/11/25 12:53
AST 16 U/L (17-59) L 04/11/25 12:53
ALT 15 U/L (0-50) 04/11/25 12:53
Alkaline Phosphatase 36 U/L (38-126) L 04/11/25 12:53
Troponin I 0.097 ng/ml H* 04/11/25 16:15
Data Reviewed
-
Diagnostic Radiology: Image Personally Visualized and interpreted
Lab Data: Labs Reviewed by me
Impression/Plan
-
IMPRESSION:
Patient is 80 years old male with multiple comorbidities came into the hospital with altered mental status and dyspnea. Patient at increased risk of morbidity and mortality due to acute presentation and multiple comorbidities therefore he will need
to be treated in the hospital and monitor accordingly.
PLAN:
MARCIA on CKD:
Multifactorial etiology but a cardiorenal syndrome and postobstructive component seems to be predominant
Whether he will need hemodialysis will defer to nephrology
Straight cath in the ED
Continue to monitor postvoid residual and if continues to retain then we will put a Frederick catheter in
Nephrology consult-discussed with nephrology via [facility] text today
Avoid nephrotoxic
Continue sevelamer and calcitriol and vitamin D supplementation
Hold sodium bicarbonate and follow-up acid-base and volume status
Monitor renal function in a.m.
Shortness of breath:
Differential includes acute heart failure unknown type versus volume overload related to renal disease versus other
Seen chest x-ray and evidence of volume overload
Obtain echocardiogram
Will start Lasix 80 mg IV twice daily
Acute toxic-metabolic encephalopathy:
Likely in the setting of MARCIA and underlying dementia
Rule out infectious causes but seems less likely
Obtain CT of the head
Monitor mental status and behavior
Anemia:
Suspect anemia of chronic disease but proceed to do basic anemia workup since hemoglobin off his baseline.
Hypertension:
Continue home antihypertensives
Hyperlipidemia:
Continue home statin
Depression:
Continue antidepressant
Dementia:
Continue memantine
DVT prophylaxis:
Heparin SQ
CODE STATUS:
Full code
Time spent 75 minutes
--- NOTE | 2025-04-11 17:28 | W.CON.NEPH ---
Consultation
-
Date/Time Consultation Requested: 04/11/25 5pm
Date/Time Consultation Performed: 04/11/25 5pm
Requesting Provider: Dr. Acosta
Performing Provider: Dr. Ramos
Reason for Consultation: MARCIA
Medical History
-
Chief Complaint: MARCIA
History of Present Illness:
This is a 80-year-old gentleman who has chronic knee disease stage V with baseline creatinine approximately 6-7. Last outpatient check was February 07, 2025 when it was 6.9. He has an AV fistula with bovine graft interposition in the right upper
arm. He is considered functional at this time. He does have hypertension which is typically controlled on a multidrug regimen. He has some baseline anemia and was due for additional blood work upcoming. He also has baseline dementia on memantine
and is usually accompanied by his 2 visits. He has very poor short-term memory. He does take sevelamer for phosphate binding which has been relatively stable. Reportedly over the last 2 weeks he has developed worsening wheezing with apparent
labored breathing. For this she had taken him to the primary care who then referred him to the emergency room. Here he was noted to have a creatinine of 8 with an x-ray consistent with pulmonary edema. Interestingly, he is not wearing
supplemental oxygen with saturations at 95%. He also has no complaints whatsoever. He was straight catheterized in the emergency room for 600 cc.
Past Medical History
CKD 5
Hypertension
Dementia
Paroxysmal atrial flutter
Secondary hyperparathyroidism
Hyperphosphatemia
Nephrolithiasis
Anemia
Vasectomy
Tonsillectomy
Kidney stone extraction
Cardioversion
Right upper extremity AV fistula creation with interposition bovine graft and pseudoaneurysm resection
TURP
Social History
Tobacco: Former Smoker
Alcohol: None
Family History
Cancer, heart disease
Family History: Not Pertinent
Allergies / Home Medications
Allergy/AdvReac Type Severity Reaction Status Date / Time
No Known Allergies Allergy Verified 07/02/24 12:27
�Medication �Instructions �Recorded �Confirmed �Type
amlodipine 5 mg tablet 5 mg PO BID 11/07/21 04/11/25 History
citalopram 40 mg tablet 40 mg PO DAILY 11/07/21 04/11/25 History
cholecalciferol (vitamin D3) 50 50 mcg PO DAILY 02/04/22 04/11/25 History
mcg (2,000 unit) tablet (Vitamin
D3)
calcitriol 0.25 mcg capsule 0.5 mcg PO DAILY 01/29/23 04/11/25 History
sodium bicarbonate 650 mg tablet 1,300 mg PO BID 01/29/23 04/11/25 History
memantine 10 mg tablet 10 mg PO DAILY 06/28/23 04/11/25 History
carvedilol 12.5 mg tablet 12.5 mg PO BID 12/19/23 04/11/25 History
torsemide 20 mg tablet 30 mg PO QHS 12/19/23 04/11/25 History
acetaminophen 325 mg tablet 650 mg PO Q6HPRN PRN mild pain 04/11/25 04/11/25 History
(Tylenol)
aspirin 81 mg tablet 81 mg PO DAILY 04/11/25 04/11/25 History
atorvastatin 40 mg tablet 40 mg PO HS 04/11/25 04/11/25 History
quetiapine 50 mg tablet (Seroquel) 50 mg PO HS 04/11/25 04/11/25 History
sevelamer HCl 800 mg tablet 1,600 mg PO TID 04/11/25 04/11/25 History
Review of Systems
-
Unable to obtain full review of systems at this time due to: Dementia
History Source: Family
All other systems: Negative unless noted
Physical Exam
Vital Signs
Vital Signs
Temp Pulse Resp BP Pulse Ox
98 F 66 16 162/67 95
04/11/25 12:29 04/11/25 16:00 04/11/25 16:00 04/11/25 15:00 04/11/25 16:00
Lab Results
WBC 7.3 10^3/uL (4.8-10.8) 04/11/25 12:53
RBC 2.63 10^6/uL (4.70-6.10) L 04/11/25 12:53
Hgb 7.9 g/dL (13.0-18.0) L 04/11/25 12:53
Hct 24.7 % (39.0-52.0) L 04/11/25 12:53
Plt Count 233 10^3/uL (130-400) 04/11/25 12:53
Sodium 136 mmol/L (135-145) 04/11/25 12:53
Potassium 4.6 mmol/L (3.5-5.1) 04/11/25 12:53
Chloride 103 mmol/L (98-107) 04/11/25 12:53
Carbon Dioxide 21 mmol/L (22-30) L 04/11/25 12:53
BUN 82 mg/dl (9-20) H 04/11/25 12:53
Creatinine 8.0 mg/dL (0.7-1.3) H* 04/11/25 12:53
eGFR 6.35 04/11/25 12:53
Glucose 88 mg/dl (70-99) 04/11/25 12:53
Calcium 8.4 mg/dl (8.4-10.2) 04/11/25 12:53
Ijv-L-Wkbjiqaoyua Pept 7970 pg/ml 04/11/25 16:15
Albumin 4.2 g/dl (3.5-5.0) 04/11/25 12:53
Laboratory Tests
02/07/25 04/11/25
12:54 16:15
Hgb 9.0 L
Creatinine 6.9 H*
Phosphorus 5.6 H
Troponin I 0.097 H*
Ien-U-Amifzfxyzrv Pept 7970
Physical Exam
Patient is awake alert oriented and in no distress. Mood and affect were pleasant, insight and judgment were poor. Pupils are equal round and reactive to light, extraocular movements are intact, sclera were anicteric. Hearing was normal, ears and
nose are intact. Oropharynx was clear and dry. Neck was supple with trachea midline and no thyromegaly. Heart was regular rate and rhythm without rubs. Lower extremities with 1+ edema. Lungs were with Rales scattered to auscultation bilaterally
and with normal excursion. Abdomen was soft, nontender, with normal active bowel sounds, and no hepatosplenomegaly. Skin was without rash and with normal turgor. AV fistula right upper arm was with excellent bruit and a faint thrill
Data Reviewed
-
Radiology: Image Personally Visualized and interpreted (Chest x-ray 04/11/2025 by reading cardiomegaly, pulm edema)
Medical Tests (Nuc Med, Echo etc): Image Personally Visualized and interpreted (EKG 04/11/2025 by reading sinus bradycardia left ventricular hypertrophy repolarization abnormality widened QRS)
Labs: Labs Reviewed by me
Old Records: Reviewed
Assessment/Plan
-
Assessment
MARCIA
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
Hypertension
Volume overload, heart failure
Dementia
Right upper extremity AV fistula bovine graft interposition
Acute on chronic anemia
Plan
Intravenous Lasix
Check iron studies
Follow hemoglobin, may need transfusion
Follow BMP
Currently, no emergent need for dialysis though low threshold for initiating if he is unable to diurese properly
Check echocardiogram
Continue outpatient medications except for torsemide which will be converted to intravenous Lasix 80 mg IV twice daily
I attempted to call the but was unable to leave a voicemail
[2025-04-11] MEDS: DUONEB 3 ML INH (17:50)
--- NOTE | 2025-04-11 17:52 | EDRN ---
entered pt room after ECT request. pt wheezing and SOB. readjusted in bed and duo neb administered per JUN.
[2025-04-11] MEDS: LASIX 80 MG IV (18:34)
[2025-04-11 18:36] LABS: Iron 47 ug/dl (49-181); Total Iron Binding Capacity 392 ug/dl (261-462)
[2025-04-11 19:14] LABS: Ferritin 23.7 ng/ml (17.9-464.0)
[2025-04-11] MEDS: COREG 12.5 MG PO (20:44)
[2025-04-11] MEDS: SEROQUEL 50 MG PO (20:44)
[2025-04-11] MEDS: RENVELA 1600 MG PO (20:44)
[2025-04-11] MEDS: NORVASC 5 MG PO (20:44)
[2025-04-11] MEDS: LIPITOR 40 MG PO (20:44)
[2025-04-11] MEDS: HEPARIN 5000 UNITS SC (20:44)
[2025-04-11] MEDS: TYLENOL 650 MG PO (20:45)
[2025-04-12 03:00] VITALS: BP 136/84
[2025-04-12 05:04] VITALS: BMI 33.3
[2025-04-12 07:24] VITALS: BP 138/63
--- NOTE | 2025-04-12 07:31 | PTCARENOTE ---
pt arrived confused trying to climb out of bed. Abdomen distended -Bladder scan and straight cath for 900ml. (pt was straight cath in the ed also. ) pt SOB/VILLAFANA 3L at 95% scattered rales and wheezes. pt room moved closer to nurses station.
pt voided a large incontinent amount but still had urinary retention. S/w [employer] Yolande Arriaga - bladder scan and shore placed. 600ml clear urine removed.
--- NOTE | 2025-04-12 07:51 | W.PN.UPDATE ---
Update Note
Progress Note Update
Patient� bladder scanned for 603 mls. Ordered Frederick catheter per notes.
--- NOTE | 2025-04-12 08:30 | W.PN.HOSP.TC ---
Today's Communication/Plan
-
IV Lasix. Echo. Palliative/hospice eval
Assessment / Plan
Assessment / Plan
Physical exam:
General: Acutely ill
HEENT: Normocephalic, Atraumatic and Moist Mucous Membranes
Respiratory: Bilateral crackles at bases; Negative Wheezes or Rhonchi
Cardiac: Regular Rhythm and S1/S2
GI: Soft, Nontender and Nondistended
Musculoskeletal: No Clubbing, No Cyanosis and No Edema
Neuro: Awake, Alert and Disoriented, no gross neurological deficits but generalized weakness
Psych: Restless, lack of judgement and insight
A/P:
MARCIA on CKD:
Multifactorial etiology likely cardiorenal syndrome and postobstructive.
Whether he will need hemodialysis will defer to nephrology
Straight cath in the ED
Frederick catheter in since he kept retaining
Nephrology consult appreciated-discussed with renal today
Avoid nephrotoxic
Continue sevelamer and calcitriol and vitamin D supplementation
Hold sodium bicarbonate and follow-up acid-base and volume status
Monitor renal function in a.m.
Discussed with at length and she does not want any aggressive interventions or even hemodialysis if it comes to that which seems very likely at this point. She is agreeable with hospice evaluation or palliative care. She also confirms that he
is CODE STATUS is DNR.
I reached out to nephrology and let him know.
Urinary retention:
Cont Frederick
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
Seen chest x-ray and evidence of volume overload
Obtained echocardiogram and reviewed results-hold on cardio eval depending on conversations with palliative and hospice first to align goals of care and then will decide.
Cont Lasix 80 mg IV twice daily
Acute toxic-metabolic encephalopathy:
Likely in the setting of MARCIA and underlying dementia
No infectious etiology
Obtained CT of the head and no acute intracranial abnormalities
Monitor mental status and behavior
Anemia of chronic disease and iron deficiency:
IV Iron
Monitor Hb
Hypertension:
Continue home antihypertensives
Hyperlipidemia:
Continue home statin
Depression:
Continue antidepressant
Dementia (appears to be advanced stage):
Continue memantine
DVT prophylaxis:
Heparin SQ
CODE STATUS:
DNR
Guarded prognosis overall
Total time spent on today's encounter was 52 minutes which included time spent in counseling the patient/family regarding diagnosis and treatment plan as listed above, goals of care, and symptom management. Case was discussed with nursing staff,
specialists, and care coordinators/case management. All labs and imaging personally reviewed by me. Remainder the time spent in detailed review of previous records, lab data, imaging, and other medical provider documentation.
Anticipated Discharge: 24 - 48 hours
Subjective/Interval History
-
Date of Service: April 12, 2025
Less sob overall, still significant peripheral edema. No cp, no fever.
Objective Data
-
Labs:
Laboratory Results
04/12/25
08:14
WBC Pending
Hgb Pending
Hct Pending
Plt Count Pending
Sodium Pending
Potassium Pending
Chloride Pending
Carbon Dioxide Pending
BUN Pending
Creatinine Pending
Glucose Pending
Calcium Pending
Vital Signs:
Vital Signs
Temp Pulse Resp BP Pulse Ox
98.5 F 61 16 138/63 99
04/12/25 07:24 04/12/25 07:24 04/12/25 07:24 04/12/25 07:24 04/12/25 07:24
I&O
04/11/25 04/12/25 04/13/25
06:59 06:59 06:59
Intake Total 50 / 50
Output Total 1999
Balance -1950 / -1950
[2025-04-12 08:35] LABS: Hematocrit 24.3 % (39.0-52.0); Hemoglobin 7.7 g/dL (13.0-18.0); Mean Corp Hgb Conc. 31.7 g/dL (33.0-37.0); Mean Corpuscular Volume 95.3 fL (80.0-94.0); Platelet Count 224 10^3/uL (130-400); Red Cell Dist. Width 14.0 % (11.5-14.5)
[2025-04-12 08:50] LABS: Troponin I 0.099 ng/ml
[2025-04-12 08:58] LABS: Blood Urea Nitrogen 80 mg/dl (9-20); Calcium 8.5 mg/dl (8.4-10.2); Carbon Dioxide 23 mmol/L (22-30); Chloride 106 mmol/L (98-107); Estimated Creatinine Clearance 8 ml/min; Glucose 80 mg/dl (70-99); Potassium 4.4 mmol/L (3.5-5.1); Sodium 140 mmol/L (135-145); eGFR 6.26
[2025-04-12 10:01] LABS: Folate 8.9 ng/ml (2.76-20); Vitamin B12 434 pg/ml (239-931)
[2025-04-12] MEDS: FERRLECIT 110 MG IV (10:17)
[2025-04-12] MEDS: LASIX 80 MG IV (10:18)
[2025-04-12] MEDS: HEPARIN 5000 UNITS SC ×2 (10:19→20:01)
[2025-04-12] MEDS: NORVASC 5 MG PO ×2 (10:19→20:01)
[2025-04-12] MEDS: RENVELA 1600 MG PO ×3 (10:19→20:02)
[2025-04-12] MEDS: CELEXA 40 MG PO (10:19)
[2025-04-12] MEDS: ASPIR LOW (ENTERIC COATED) 81 MG PO (10:19)
[2025-04-12] MEDS: NAMENDA 10 MG PO (10:20)
[2025-04-12] MEDS: VITAMIN D3 (cholecalciferol) 50 MCG PO (10:20)
[2025-04-12] MEDS: COREG 12.5 MG PO (10:20)
[2025-04-12] MEDS: ROCALTROL 0.5 MCG PO (10:20)
--- NOTE | 2025-04-12 10:47 | CM ---
Addendum entered by Gloria Ureña 04/12/25 15:14:
Consult received for hospice, patient and seen bedside, agreeable to referral to Hospice. TT to liaison, referral placed in [facility].
Original Note:
CM reviewed chart, patient seen bedside. Pt hx Dementia, call to , Noman, for initial assessment.
Patient resides with his in a two story home, two steps to enter.
Patient is independent with ADLs/IADLs, denies DME. reports patient goes up/down steps slowly, does seem to get out of breath.
Patient has had [facility] in past, no SNF hx.
PCP Jean Claude Rogel, Pharmacy [facility], reports partial prescription coverage.
inquiring about d/c status, reports she will transport patient home.
CM will continue to follow.
Plan; home with , watch for VN needs
[2025-04-12 11:12] VITALS: BP 137/64
--- NOTE | 2025-04-12 12:26 | W.PN.NEPH.PH ---
Today's Communication / Plan
-
diurese
Assessment/Plan
-
Assessment
MARCIA
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
Hypertension
Volume overload, heart failure
Dementia
Right upper extremity AV fistula bovine graft interposition
Acute on chronic anemia
urinary retention
Plan
Intravenous Lasix daily
expect to see some postobstructive diuresis as well
IV iron course
follow BMP
follow Hgb, will likely benefit from eventual MAEGAN
Currently, no emergent need for dialysis though low threshold for initiating if he is unable to diurese properly
Check echocardiogram
-
-
Date of Service: April 12, 2025
CC / HPI / ROS
-
Chief Complaint:
MARCIA
History of Present Illness:
MARCIA/CR stable 8.[address] for retention
grossly nonoliguric with lasix
Hgb lower 7.7, on IV iron
BP stable
Review of Systems:
no CP/SOB
Labs
-
Labs:
WBC 7.3 10^3/uL (4.8-10.8) 04/12/25 08:14
RBC 2.55 10^6/uL (4.70-6.10) L 04/12/25 08:14
Hgb 7.7 g/dL (13.0-18.0) L 04/12/25 08:14
Hct 24.3 % (39.0-52.0) L 04/12/25 08:14
Plt Count 224 10^3/uL (130-400) 04/12/25 08:14
Sodium 140 mmol/L (135-145) 04/12/25 08:14
Potassium 4.4 mmol/L (3.5-5.1) 04/12/25 08:14
Chloride 106 mmol/L (98-107) 04/12/25 08:14
Carbon Dioxide 23 mmol/L (22-30) 04/12/25 08:14
BUN 80 mg/dl (9-20) H 04/12/25 08:14
Creatinine 8.1 mg/dL (0.7-1.3) H* 04/12/25 08:14
eGFR 6.26 04/12/25 08:14
Glucose 80 mg/dl (70-99) 04/12/25 08:14
Calcium 8.5 mg/dl (8.4-10.2) 04/12/25 08:14
Bne-O-Bzhrpftfzrp Pept 7970 pg/ml 04/11/25 16:15
Albumin 4.2 g/dl (3.5-5.0) 04/11/25 12:53
Physical Exam
-
Vital Signs:
Vital Signs
Temp Pulse Resp BP Pulse Ox
99.0 F 62 20 137/64 99
04/12/25 11:12 04/12/25 11:12 04/12/25 11:12 04/12/25 11:12 04/12/25 11:12
Cardiovascular:: Regular rate and rhythm
Respiratory:: Bilateral: Coarse
Lung Excursion:: Normal
Abdomen:: Nontender and Soft
Bowel Sounds:: Normal
Extremity Edema:: +1: Bilateral:
[2025-04-12 15:41] VITALS: BP 114/57
[2025-04-12 19:24] VITALS: BP 130/65
[2025-04-12] MEDS: SEROQUEL 50 MG PO (20:02)
[2025-04-12] MEDS: LIPITOR 40 MG PO (20:02)
[2025-04-12] MEDS: COREG PO (20:02)
[2025-04-12 22:57] VITALS: BP 117/58
[2025-04-13] VITALS (8 sets, daily range): BP systolic 109–148; BP diastolic 52–69; PULSE 45–52; O2SAT 93–95; BMI 32.5
[2025-04-13] MEDS: FERRLECIT 110 MG IV (07:25)
[2025-04-13] MEDS: ASPIR LOW (ENTERIC COATED) 81 MG PO (07:25)
[2025-04-13] MEDS: VITAMIN D3 (cholecalciferol) 50 MCG PO (07:25)
[2025-04-13] MEDS: COREG 12.5 MG PO (07:25)
[2025-04-13] MEDS: NAMENDA 10 MG PO (07:26)
[2025-04-13] MEDS: CELEXA 40 MG PO (07:26)
[2025-04-13] MEDS: RENVELA 1600 MG PO ×3 (07:26→20:26)
[2025-04-13] MEDS: NORVASC 5 MG PO ×2 (07:26→20:25)
[2025-04-13] MEDS: ROCALTROL 0.5 MCG PO (07:26)
[2025-04-13] MEDS: HEPARIN 5000 UNITS SC ×2 (07:27→20:26)
[2025-04-13] MEDS: LASIX 80 MG IV (07:28)
[2025-04-13 07:59] LABS: Hematocrit 24.1 % (39.0-52.0); Hemoglobin 7.9 g/dL (13.0-18.0); Mean Corp Hgb Conc. 32.8 g/dL (33.0-37.0); Mean Corpuscular Volume 92.7 fL (80.0-94.0); Platelet Count 246 10^3/uL (130-400); Red Cell Dist. Width 13.9 % (11.5-14.5)
--- NOTE | 2025-04-13 08:33 | W.PN.HOSP.TC ---
Today's Communication/Plan
-
IV Lasix. Frederick. Palliative care and hospice evaluation.
Assessment / Plan
Assessment / Plan
Physical exam:
General: Acutely ill
HEENT: Normocephalic, Atraumatic and Moist Mucous Membranes
Respiratory: Bilateral crackles at bases; Negative Wheezes or Rhonchi
Cardiac: Regular Rhythm and S1/S2
GI: Soft, Nontender and Nondistended
Musculoskeletal: No Clubbing, No Cyanosis and No Edema
Neuro: Awake, Alert and Disoriented, no gross neurological deficits but generalized weakness
Psych: Restless, lack of judgement and insight
Echocardiogram:
1. Normal LV size and low normal left ventricular function.
2. Ejection fraction is 50-55% by Tran's method of discs.
3. Mild basal inferior hypokinesis.
4. Right ventricular size and systolic function are within normal limits.
5. Indexed left atrial volume is mildly abnormal (35-41 ml/m2).
6. Thickened and calcified aortic valve with restricted leaflet motion. Peak/mean gradients across the aortic valve are 53/32 mmHg respectively. Moderate to severe aortic stenosis. Aortic valve area 0.9 cm sq. dimensionless index 0.4. Mild aortic
valve regurgitation.
7. Moderate mitral valve regurgitation.
8. Trace tricuspid regurgitation. Estimated pulmonary artery pressure of 38 mmHg assuming a right atrial pressure of 8 mmHg.
9. The ascending aorta is borderline dilated and measures 3.8cm.
A/P:
MARCIA on CKD:
Multifactorial etiology likely cardiorenal syndrome and postobstructive.
Continue IV Lasix 80 mg daily
Continue Frederick catheter
Discussed with at length yesterday and based on patient wishes it appears moving towards hospice makes more sense at the moment. Decision of not moving towards hemodialysis is definitive.
Palliative care/hospice consulted
Nephrology on board
Urinary retention:
Cont Frederick
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
Seen chest x-ray and evidence of volume overload
Obtained echocardiogram and reviewed results-due to goals of care moving towards hospice does not make sense to have cardiology for any invasive testing or further optimization of medications at the moment.
Acute toxic-metabolic encephalopathy:
Likely in the setting of MARCIA and underlying dementia
No infectious etiology
Obtained CT of the head and no acute intracranial abnormalities
Monitor mental status and behavior
Anemia of chronic disease and iron deficiency:
IV Iron
Monitor Hb
Hypertension:
Continue home antihypertensives
Hyperlipidemia:
Continue home statin
Depression:
Continue antidepressant
Dementia (appears to be advanced stage):
Continue memantine
DVT prophylaxis:
Heparin SQ
CODE STATUS:
DNR
Guarded prognosis overall
Total time spent on today's encounter was 52 minutes which included time spent in counseling the patient/family regarding diagnosis and treatment plan as listed above, goals of care, and symptom management. Case was discussed with nursing staff,
specialists, and care coordinators/case management. All labs and imaging personally reviewed by me. Remainder the time spent in detailed review of previous records, lab data, imaging, and other medical provider documentation. More than 50% of the
time spent in counseling coordination in terms of goals of cares and prognosis
Anticipated Discharge: 24 - 48 hours
Subjective/Interval History
-
Date of Service: April 13, 2025
Patient less short of breath. Less peripheral edema. Still frail overall.
Objective Data
-
Labs:
Laboratory Results
04/13/25
07:44
WBC 8.4
Hgb 7.9 L
Hct 24.1 L
Plt Count 246
Sodium Pending
Potassium Pending
Chloride Pending
Carbon Dioxide Pending
BUN Pending
Creatinine Pending
Glucose Pending
Calcium Pending
Vital Signs:
Vital Signs
Temp Pulse Resp BP Pulse Ox
97.7 F 63 20 148/61 95
04/13/25 03:00 04/13/25 03:00 04/13/25 03:00 04/13/25 03:00 04/13/25 03:00
I&O
04/12/25 04/13/25 04/14/25
06:59 06:59 06:59
Intake Total 50 / 50
Output Total 1999 2600 / 2600
Balance -1950 / -1950 -2600 / -2600
[2025-04-13 08:37] LABS: Blood Urea Nitrogen 82 mg/dl (9-20); Calcium 8.6 mg/dl (8.4-10.2); Carbon Dioxide 24 mmol/L (22-30); Chloride 103 mmol/L (98-107); Estimated Creatinine Clearance 8 ml/min; Glucose 93 mg/dl (70-99); Magnesium 2.6 mg/dl (1.6-2.3); Sodium 138 mmol/L (135-145); eGFR 6.17
[2025-04-13 09:00] LABS: Potassium 3.9 mmol/L (3.5-5.1)
--- NOTE | 2025-04-13 10:26 | HOSPNOTE ---
Spoke with spouse about hospice and the philosophy. We discussed palliative care vs hospice care. The spouse has my direct number and will call me tomorrow with a decision. More information to come.
--- NOTE | 2025-04-13 12:57 | CM ---
CM reviewed chart, patient seen bedside with .
reports she spoke with Hospice, will make decision regarding signing on to services tomorrow and provide to hospice.
CM will follow for d/c planning needs.
Plan; Hospice following, will make decision tomorrow
--- NOTE | 2025-04-13 13:08 | W.CON.PAL ---
Addendum entered and electronically signed by Morgan Joyce MD 04/13/25 14:10:
Pt contacted and explored what she understood with what his clinical situation is and we discussed what Brendan would have wanted if he can make his own decisions, she shared that they would like to focus on comfort, she would not want HD,
escalation of care to ICU or repeated hospitalizations, she wants to focus on relieving suffering and treating symptoms with medications and plan is to take home. Will inform primary team.
Original Note:
Consultation
-
Date/Time Consultation Requested: 04/12/25
Date/Time Consultation Performed: 04/13/25
Requesting Provider: Dr Acosta
Performing Provider: Dr Joyce
Reason for Consult: Goals of Care Discussion
Primary Diagnosis: MARCIA on CKD
Consult Requested By: Patient's Physician
Reason for Admission
Illness Course/HPI
Patient is 80 years old male with history of hypertension, hyperlipidemia, CKD, depression anxiety, dementia who was admitted with worsened renal function and altered mental status.As per charts Patient has been more confused than his baseline over
the last several days and he is also being more short of breath as well, Assessment of possible acute toxic metabolic encephalopathy, fluid overload, acute urinary retention and MARCIA on CKD was made with possible cardio-renal syndrome, nephrology was
consulted on account of the worsened renal status and nephrology had recommended a palliative care approach to his CKD.
Goals of Care Discussion
-
Patient able to participate in discussion at time of visit: No
Patient Goals
Hospitalist had a GOC discussion with family and the had shared he is DNR and open to hospice evaluation, I was unable to get a GOC discusion with Pt on account of the severe cognitive deficit, phone number was called multiple times
morning without answer, I did liase with hospital hospice liason who was able to speak with Pt and she will make a decision regarding moving on with palliative care services versus hospice tomorrow. Will need clarify goals fully if not moving
on with hospice, left a palliative care [package at bedside for her.
Pain & Symptom Assessment
-
unable due to mental status
Objective Data
-
Objective Data:
Vital Signs
Temp Pulse Resp BP Pulse Ox
97.3 F 49 18 109/52 98
04/13/25 11:00 04/13/25 11:00 04/13/25 11:00 04/13/25 11:00 04/13/25 11:00
Laboratory Results
04/13/25 07:44
04/13/25 07:44
Total Protein 6.6 g/dl (6.3-8.2) 04/11/25 12:53
Albumin 4.2 g/dl (3.5-5.0) 04/11/25 12:53
Urine Color Yellow 04/11/25 14:15
Urine Clarity Clear (Clear) 04/11/25 14:15
Urine pH 6.5 (5.0-9.0) 04/11/25 14:15
Ur Specific [place] 1.010 (<1.030) 04/11/25 14:15
Urine Ketones Negative (Negative) 04/11/25 14:15
Urine Bilirubin Negative (Negative) 04/11/25 14:15
Palliative Performance Scale
Palliative Performance Scale:
PPS Level Ambulation Activity & Evidence of Disease Self Care Intake Conscious Level
100% Full Normal Activity & Work; Full Intake Full
No Evidence of Disease
90% Full Normal Activity & Work; Full Normal Full
Some Evidence of Disease
80% Full Normal Activity with Effort Full Normal or Full
Some Evidence of Disease Reduced
70% Reduced Unable Normal Job/Work Full Normal or Full
Significant Disease Reduced
60% Reduced Unable Hobby/Housework Occasional Normal or Full or Confusion
Significant Disease Assistance Reduced
50% Mainly Sit/Lie Unable to do Any Work Considerable Normal or Full or Confusion
Extensive Disease Assistance Req'd Reduced
40% Mainly in Bed Unable to do Most Activity Mainly Assistance Normal or Full or Drowsy;
Extensive Disease Reduced +/- Confusion
30% Totally Bed Unable to do Any Activity Total Care Normal or Full or Drowsy;
Bound Extensive Disease Reduced +/- Confusion
20% Totally Bed Bound Unable to do Any Activity Total Care Minimal to Full or Drowsy;
Extensive Disease Sips +/- Confusion
10% Totally Bed Bound Unable to do Any Activity Total Care Mouth Care Drowsy or Coma;
Extensive Disease Only +/- Confusion
0%
PPS Score Level:
Palliative Performance Score Response
Palliative Performance Score Response: 50%
Physical Exam
-
General: Comfortable and Appears Chronically Ill
HEENT: Normocephalic and Atraumatic
Respiratory: Clear to Auscultation
Cardiac: S1/S2
Peripheral Vascular: No Edema
GI: Nontender and Normal Bowel Sounds
Skin: Warm and Dry
Neuro: Awake, Alert and Other (not alert, oriented to his name only, did not know where he was, president or why he is here, very confused and has word finding difficulty, )
Psych: Confused
speech is sparse, confused
Assessment / Plan
-
Assessment/Plan:
Patient is 80 years old male with history of hypertension, hyperlipidemia, CKD, depression anxiety, dementia who was admitted with worsened renal function and altered mental status.As per charts Patient has been more confused than his baseline over
the last several days and he is also being more short of breath as well, Assessment of possible acute toxic metabolic encephalopathy, fluid overload, acute urinary retention and MARCIA on CKD was made with possible cardio-renal syndrome, nephrology was
consulted on account of the worsened renal status and nephrology had recommended a palliative care approach to his CKD.
Pt unable to partake in GOC discussion and called multiple times by sheet writer, had mentioned to team that she wanted reached out to hospice liason and has her contact, would make decision about hospice versus palliative tomorrow. If pt
planned for dc can follow up in palliative care clinic versus home palliative care to continue goals of care discussion.
Care Reviewed
Data Reviewed
Medical Tests: I reviewed
--- NOTE | 2025-04-13 13:51 | W.PN.NEPH.PH ---
Today's Communication / Plan
-
Maintain IV Lasix for now
Follow BMP
Dialysis option will not be explored as likely patient will pursue palliative care
Assessment/Plan
-
Assessment
MARCIA
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
Hypertension
Volume overload, heart failure
Dementia
Right upper extremity AV fistula bovine graft interposition
Acute on chronic anemia
urinary retention
Plan
Intravenous Lasix daily to continue while patient is hospitalized
Nonoliguric with decreasing weight
expect to see some postobstructive diuresis as well but thus far creatinine remains elevated at 8.2
IV iron course
follow BMP
follow Hgb, will likely benefit from eventual MAEGAN
Currently, no emergent need for dialysis though low threshold for initiating if he is unable to diurese properly
Checked echocardiogram: moderate to severe Aortic Stensosis, preserved EF
Discussed with and given patient's dementia and ongoing comorbidities the decision has been made that we would not pursue dialysis
Palliative care did see the patient and his today
-
-
Date of Service: April 13, 2025
CC / HPI / ROS
-
Chief Complaint:
MARCIA
History of Present Illness:
MARCIA/CR stable 8.[address] for retention
grossly nonoliguric with lasix
Hgb lower 7.7, on IV iron
BP stable
Review of Systems:
no CP/SOB
Nonoliguric
Weights down
Demented
Labs
-
Labs:
WBC 8.4 10^3/uL (4.8-10.8) 04/13/25 07:44
RBC 2.60 10^6/uL (4.70-6.10) L 04/13/25 07:44
Hgb 7.9 g/dL (13.0-18.0) L 04/13/25 07:44
Hct 24.1 % (39.0-52.0) L 04/13/25 07:44
Plt Count 246 10^3/uL (130-400) 04/13/25 07:44
Sodium 138 mmol/L (135-145) 04/13/25 07:44
Potassium 3.9 mmol/L (3.5-5.1) 04/13/25 07:44
Chloride 103 mmol/L (98-107) 04/13/25 07:44
Carbon Dioxide 24 mmol/L (22-30) 04/13/25 07:44
BUN 82 mg/dl (9-20) H 04/13/25 07:44
Creatinine 8.2 mg/dL (0.7-1.3) H* 04/13/25 07:44
eGFR 6.17 04/13/25 07:44
Glucose 93 mg/dl (70-99) 04/13/25 07:44
Calcium 8.6 mg/dl (8.4-10.2) 04/13/25 07:44
Bsk-U-Ocnnykcaecg Pept 7970 pg/ml 04/11/25 16:15
Albumin 4.2 g/dl (3.5-5.0) 04/11/25 12:53
Physical Exam
-
Vital Signs:
Vital Signs
Temp Pulse Resp BP Pulse Ox
97.3 F 49 18 109/52 98
04/13/25 11:00 04/13/25 11:00 04/13/25 11:00 04/13/25 11:00 04/13/25 11:00
Cardiovascular:: Regular rate and rhythm
Respiratory:: Bilateral: Coarse
Lung Excursion:: Normal
Abdomen:: Nontender and Soft
Bowel Sounds:: Normal
Extremity Edema:: +1: Bilateral:
--- NOTE | 2025-04-13 15:10 | HOSPNOTE ---
Spoke with spouse again and she wishes to take patient home tomorrow with hospice. Spouse will waste picker patient at 1pm, once patient is home we will sign onto hospice services. Attending and CM aware of plan.
[2025-04-13] MEDS: COREG PO (20:24)
[2025-04-13] MEDS: LIPITOR 40 MG PO (20:25)
[2025-04-13] MEDS: SEROQUEL 50 MG PO (20:25)
[2025-04-14 03:00] VITALS: BP 136/69
[2025-04-14 05:52] VITALS: BMI 31.4
[2025-04-14 07:30] VITALS: BP 138/67
[2025-04-14 08:32] LABS: Hematocrit 22.7 % (39.0-52.0); Hemoglobin 7.4 g/dL (13.0-18.0)
[2025-04-14] MEDS: ROCALTROL 0.5 MCG PO (09:33)
[2025-04-14] MEDS: NAMENDA 10 MG PO (09:33)
[2025-04-14] MEDS: RENVELA 1600 MG PO (09:33)
[2025-04-14] MEDS: ASPIR LOW (ENTERIC COATED) 81 MG PO (09:33)
[2025-04-14] MEDS: CELEXA 40 MG PO (09:33)
[2025-04-14] MEDS: LASIX 80 MG IV (09:34)
[2025-04-14] MEDS: VITAMIN D3 (cholecalciferol) 50 MCG PO (09:34)
[2025-04-14] MEDS: NORVASC 5 MG PO (09:34)
[2025-04-14] MEDS: FERRLECIT 110 MG IV (09:35)
[2025-04-14] MEDS: HEPARIN 5000 UNITS SC (09:35)
[2025-04-14] MEDS: COREG 12.5 MG PO (09:35)
[2025-04-14 09:39] LABS: Blood Urea Nitrogen 87 mg/dl (9-20); Calcium 8.5 mg/dl (8.4-10.2); Carbon Dioxide 22 mmol/L (22-30); Chloride 100 mmol/L (98-107); Estimated Creatinine Clearance 8 ml/min; Glucose 90 mg/dl (70-99); Potassium 4.0 mmol/L (3.5-5.1); Sodium 133 mmol/L (135-145); eGFR 6.35
--- NOTE | 2025-04-14 10:33 | W.PN.HOSP.TC ---
Today's Communication/Plan
-
Discharge planning today
Assessment / Plan
Assessment / Plan
Physical exam:
General: Acutely on chronically ill
HEENT: Normocephalic, Atraumatic and Moist Mucous Membranes
Respiratory: Bilateral crackles at bases; Negative Wheezes or Rhonchi
Cardiac: Regular Rhythm and S1/S2
GI: Soft, Nontender and Nondistended
Musculoskeletal: No Clubbing, No Cyanosis and No Edema
Neuro: Awake, Alert and Disoriented, no gross neurological deficits but generalized weakness
Psych: Restless, lack of judgement and insight
Echocardiogram:
1. Normal LV size and low normal left ventricular function.
2. Ejection fraction is 50-55% by Tran's method of discs.
3. Mild basal inferior hypokinesis.
4. Right ventricular size and systolic function are within normal limits.
5. Indexed left atrial volume is mildly abnormal (35-41 ml/m2).
6. Thickened and calcified aortic valve with restricted leaflet motion. Peak/mean gradients across the aortic valve are 53/32 mmHg respectively. Moderate to severe aortic stenosis. Aortic valve area 0.9 cm sq. dimensionless index 0.4. Mild aortic
valve regurgitation.
7. Moderate mitral valve regurgitation.
8. Trace tricuspid regurgitation. Estimated pulmonary artery pressure of 38 mmHg assuming a right atrial pressure of 8 mmHg.
9. The ascending aorta is borderline dilated and measures 3.8cm.
A/P:
MARCIA on CKD:
Multifactorial etiology likely cardiorenal syndrome and postobstructive.
Continue IV Lasix 80 mg daily and switch to oral Lasix upon discharge
Continue Frederick catheter
Discussed with at length prior and based on patient wishes it appears moving towards hospice makes more sense at the moment. Decision of not moving towards hemodialysis is definitive.
Palliative care/hospice consulted
Nephrology on board
Plan for home hospice today
Urinary retention:
Cont Frederick
Elevated troponin:
Type I versus type II OR. Hard to tell without patient eliciting any symptoms due to his dementia but he did have some wall motion abnormalities on echocardiogram and he has risk factor for atherosclerosis.
Given patient is going to hospice it is not appropriate to pursue ischemic workup.
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
Seen chest x-ray and evidence of volume overload
Obtained echocardiogram and reviewed results-due to goals of care moving towards hospice does not make sense to have cardiology for any invasive testing or further optimization of medications at the moment.
Acute toxic-metabolic encephalopathy:
Likely in the setting of MARCIA and underlying dementia
No infectious etiology
Obtained CT of the head and no acute intracranial abnormalities
Monitor mental status and behavior
Anemia of chronic disease and iron deficiency:
IV Iron
Monitor Hb
Hypertension:
Continue home antihypertensives
Hyperlipidemia:
Continue home statin
Depression:
Continue antidepressant
Dementia (appears to be advanced stage):
Continue memantine
DVT prophylaxis:
Heparin SQ
CODE STATUS:
DNR
Guarded prognosis overall
Total time spent on today's encounter was 36 minutes which included time spent in counseling the patient/family regarding diagnosis and treatment plan as listed above, goals of care, and symptom management. Case was discussed with nursing staff,
specialists, and care coordinators/case management. All labs and imaging personally reviewed by me. Remainder the time spent in detailed review of previous records, lab data, imaging, and other medical provider documentation. More than 50% of the
time spent in counseling coordination in terms of goals of cares and prognosis
Anticipated Discharge: Today
Subjective/Interval History
-
Date of Service: April 14, 2025
Patient feels comfortable today. Frail overall.
Objective Data
-
Labs:
Laboratory Results
04/14/25
07:23
Hgb 7.4 L
Hct 22.7 L
Sodium 133 L
Potassium 4.0
Chloride 100
Carbon Dioxide 22
BUN 87 H
Creatinine 8.0 H*
Glucose 90
Calcium 8.5
Vital Signs:
Vital Signs
Temp Pulse Resp BP Pulse Ox
97.8 F 58 18 138/67 93
04/14/25 07:30 04/14/25 09:34 04/14/25 07:30 04/14/25 09:34 04/14/25 07:30
I&O
04/13/25 04/14/25 04/15/25
06:59 06:59 06:59
Intake Total 1440 / 1440
Output Total 2600 / 2600 2180 / 2180
Balance -2600 / -2600 -740 / -740
[2025-04-14 11:20] VITALS: BP 153/75
--- NOTE | 2025-04-14 11:42 | W.DCSUMMARY ---
Discharge Summary
Discharge Data
Date of Admission: 04/11/25
Date of Discharge: 04/14/25
Total time spent discharging patient (in min): 35
-
Pending Results: No
Hospital Course
Patient is 80 years old male with history of hypertension, hyperlipidemia, CKD, depression, dementia, came into the hospital with shortness of breath and urinary retention. Nephrology consulted. Patient was noted to have worsening renal function
and volume overload in part due to cardiac and in part due to advanced kidney disease. He was diuresed aggressively. He was placed a Frederick catheter. He had an echocardiogram that showed significant cardiac abnormalities but family decided not to
pursue any cardiac evaluation or further workup. In spite of medical treatment patient has not improved significantly and given his comorbidities especially advanced dementia and also his wishes in the past patient and family decided to move
towards hospice. Hospice consulted as well as palliative care and decision was to be discharged to home hospice.
Discharge duration: 35 minutes
Discharge Plan
-
Patient Disposition: Home with Hospice
Discharge Diagnosis/Procedures: End-stage renal disease decided not to do dialysis. Urinary retention status post Frederick catheter. Anemia of iron deficiency and anemia of chronic disease. Acute heart failure moderate reduced ejection fraction.
Elevated troponin. Wall motion abnormalities by echocardiogram. Moderate to severe aortic stenosis. Moderate mitral valve regurgitation. Trace tricuspid valve regurgitation. Pulmonary hypertension. Dilated ascending aorta. Advanced dementia.
Diet: Regular
Activity: As tolerated
Referrals:
Jean Claude Rogel MD [Family Provider, General] - in less than 1 week
Prescriptions:
New
furosemide [Lasix] 80 mg tablet
80 mg PO DAILY Qty: 30 0RF
Continued
citalopram 40 mg Tablet
40 mg PO DAILY
amlodipine 5 mg Tablet
5 mg PO BID
cholecalciferol (vitamin D3) [Vitamin D3] 50 mcg (2,000 unit) Tablet
50 mcg PO DAILY
sodium bicarbonate 650 mg Tablet
1,300 mg PO BID
calcitriol 0.25 mcg Capsule
0.5 mcg PO DAILY
memantine 10 mg Tablet
10 mg PO DAILY
Patient Comments:
04/11/25-spouse stated she can not get patient to take second dose
carvedilol 12.5 mg Tablet
12.5 mg PO BID
torsemide 20 mg Tablet
30 mg PO QHS
atorvastatin 40 mg Tablet
40 mg PO HS
acetaminophen [Tylenol] 325 mg Tablet
650 mg PO Q6HPRN PRN (Reason: mild pain)
sevelamer HCl 800 mg Tablet
1,600 mg PO TID
aspirin 81 mg Tablet
81 mg PO DAILY
quetiapine [Seroquel] 50 mg Tablet
50 mg PO HS
Discharge Orders:
Discharge Patient (As Directed); Ordered 04/14/25
Ordered By: Andry Acosta
Discharge Date and Time
Discharge Date/Time: 04/14/25 17:34
Print Language: MACEDONIAN
--- NOTE | 2025-04-14 14:24 | CM ---
CM reviewed chart, seen in hallway.
Plan for d/c home today with Hospice to sign on.
Patient scheduled for 4:00 p.m. ambulance transport.
IMM verbally reviewed with , provided with copy, placed in chart.
Update to [facility] with transport time.
CM will continue to follow.
Plan; home with Hospice, 4:00 p.m. ambulance transport
[facility]
[2025-04-14 15:24] VITALS: BP 156/75
--- NOTE | 2025-04-14 15:50 | W.PN.NEPH.PH ---
Today's Communication / Plan
-
Sign off
Assessment/Plan
-
Assessment
MARCIA
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
Hypertension
Volume overload, heart failure
Dementia
Right upper extremity AV fistula bovine graft interposition
Acute on chronic anemia
urinary retention
Plan
Intravenous Lasix daily to continue while patient is hospitalized
Nonoliguric with decreasing weight
expect to see some postobstructive diuresis as well but thus far creatinine remains elevated at 8.2
IV iron course
follow BMP
Checked echocardiogram: moderate to severe Aortic Stensosis, preserved EF
Discussed with and given patient's dementia and ongoing comorbidities the decision has been made that we would not pursue dialysis
Patient for hospice will sign off
-
-
Date of Service: April 14, 2025
CC / HPI / ROS
-
Chief Complaint:
MARCIA
History of Present Illness:
MARCIA/CR stable 8.[address] for retention
grossly nonoliguric with lasix
Hgb lower 7.7, on IV iron
BP stable
Review of Systems:
no CP/SOB
Nonoliguric
Weights down
Demented
Labs
-
Labs:
WBC 8.4 10^3/uL (4.8-10.8) 04/13/25 07:44
RBC 2.60 10^6/uL (4.70-6.10) L 04/13/25 07:44
Hgb 7.4 g/dL (13.0-18.0) L 04/14/25 07:23
Hct 22.7 % (39.0-52.0) L 04/14/25 07:23
Plt Count 246 10^3/uL (130-400) 04/13/25 07:44
Sodium 133 mmol/L (135-145) L 04/14/25 07:23
Potassium 4.0 mmol/L (3.5-5.1) 04/14/25 07:23
Chloride 100 mmol/L (98-107) 04/14/25 07:23
Carbon Dioxide 22 mmol/L (22-30) 04/14/25 07:23
BUN 87 mg/dl (9-20) H 04/14/25 07:23
Creatinine 8.0 mg/dL (0.7-1.3) H* 04/14/25 07:23
eGFR 6.35 04/14/25 07:23
Glucose 90 mg/dl (70-99) 04/14/25 07:23
Calcium 8.5 mg/dl (8.4-10.2) 04/14/25 07:23
Hcr-C-Xqrumqlfncm Pept 7970 pg/ml 04/11/25 16:15
Albumin 4.2 g/dl (3.5-5.0) 04/11/25 12:53
Physical Exam
-
Vital Signs:
Vital Signs
Temp Pulse Resp BP Pulse Ox
97.7 F 54 20 156/75 98
04/14/25 15:24 04/14/25 15:24 04/14/25 15:24 04/14/25 15:24 04/14/25 15:24
Cardiovascular:: Regular rate and rhythm
Respiratory:: Bilateral: Coarse
Lung Excursion:: Normal
Abdomen:: Nontender and Soft
Bowel Sounds:: Normal
Extremity Edema:: +1: Bilateral:
--- NOTE | 2025-04-15 11:43 | W.HF.CON ---
Heart Failure
- LV Function
Left ventricular function study result: LV Ejection fraction >/= 50%
Ejection Fraction Percentage: 50-55
- ARNI
Patient already on ARNI: No
Heart Failure ARNI Not Indicated: LV Ejection Fraction >/= 40%
- ACEI/ARB
Patient already on ACEI/ARB: No
Heart Failure ACEI/ARB Not Indicated: LV Ejection Fraction > 40%
- Beta Naz
Patient already on Evidence Based Beta Naz: Yes
- Mineralocorticord Receptor Antagonist
Patient already on MRA: No
Heart Failure MRA Not Indicated: LV Ejection Fraction > 40%
- SGLT-2 Inhibitor
Patient already on SGLT-2 Inhibitor: No
Heart Failure SGLT-2 Inhibitor Contraindication: eGFR < 25, Comfort Measures
- NYHA CHF Classification
NYHA CHF Classification Level: Class III - Symptoms w/ min exertion, interferes w/ nml daily activity
- ACC/AHA Stage
ACC/AHA Stage: Stage C: Symptomatic Heart Failure (ESRD)
== END 2025-04-14 17:34 | disposition hospice, home (50) | DRG 682 ==
LOC: 4 WEST ACU 17:38
PROVIDERS: Emergency Medicine; Specialist; ADMITTING PHYSICIAN Hospitalist; CONSULT PHYSICIAN Specialist; CONSULT PHYSICIAN Student in an Organized Health Care Education/Training Program; EMERGENCY PHYSICIAN Emergency Medicine; FAMILY PHYSICIAN Internal Medicine
DX: I12.0 Hypertensive chronic kidney disease with stage 5 chronic kidney disease or end stage renal disease (principal); G93.41 Metabolic encephalopathy; N17.9 Acute kidney failure, unspecified; N18.5 Chronic kidney disease, stage 5; Z87.891 Personal history of nicotine dependence; E21.3 Hyperparathyroidism, unspecified; Z79.82 Long term (current) use of aspirin; Z79.899 Other long term (current) drug therapy
CPT/HCPCS: 70450; 71046; 80048; 80053; 81003; 81015; 82607; 82728; 82746; 82962; 83540; 83550; 83735; 83880; 84484; 85014; 85018; 85025; 85027; 93005; 93306; 97163; 97167; 99285; J2916